=== PATIENT | female | born 1965 | race Caucasian/White ===

== ENCOUNTER 2017-01-08 18:24 | Emergency (ER) | payer OTHER ==
[~2017-01-08] VITALS: Ht 162.6 cm; Wt 91.0 kg
[~2017-01-08 18:24] MED LIST: IMIT25 PO; LEVE500S9 PO; LEVO50TA74 PO; LOSA100T7 PO; TOPI100T42 PO
[2017-01-08 18:37] VITALS: Ht 162.6 cm; Wt 91.0 kg
[2017-01-08 20:00] LABS: URINE BLOOD (Dip) POC Trace-intact (NEGATIVE)
--- NOTE | 2017-01-08 21:33 | RADRPT ---
PROCEDURE: US Pelvis. CLINICAL INDICATION: Right-sided inguinal pain. TECHNIQUE: Multiple sonographic images of the pelvis were obtained utilizing a transabdominal and endovaginal technique. The images were reviewed on a PACS workstation. COMPARISON: No. FINDINGS: The uterus is visualized and measures 9 cm sagittal by 6.6 cm AP by 5.8 cm transverse.. The endometr ial echo complex is normal and measures 1.1- 1.2 cm, respectively in the right and left uterine horn s. There is a bicornuate uterus. The ovaries are not evaluated. There are multiple Nabothian cysts on the cervix. The largest measured up to 1.4 cm in diameter. No free fluid is identified in the p jon. No abnormal adnexal mass is noted. IMPRESSION: 1. Bicornuate uterus. 2. Endometrial thickness measures 1.1-1.2 cm in the right left uterine horns. No endometrial pranay s identified. 3. The ovaries are not evaluated. 4. There are multiple Nabothian cysts on the cervix. RPTAT:AAJJ Physician Yves Date Time Electronically viewed and signed by Physician Yves on 01/08/2017 21:33 MARIO/
--- NOTE | 2017-01-08 22:28 | RADRPT ---
PROCEDURE: Right inguinal ultrasound CLINICAL INDICATION: Right inguinal pain TECHNIQUE: Multiple transverse and longitudinal images of the right inguinal canal were obtained. The images were reviewed on a high-resolution PACS workstation. COMPARISON: None FINDINGS: No sonographic evidence for hernia is seen. No mass is seen. No fluid collection is identified. IMPRESSION: No sonographic evidence for a right inguinal hernia. Clinical concern for a right inguinal hernia p ersist, a CT is recommended. RPTAT: HPNM Physician Hal Date Time Electronically viewed and signed by Physician Hal on 01/08/2017 22:27 /
[2017-01-08] MEDS ORDERED: ACET500C5 PO (22:57)
--- NOTE | 2017-01-08 23:36 | ERD ---
ER Documentation Chief Complaint Date/Time DATE: 01/08/17 TIME: 23:31 Chief Complaint pain/swelling right thigh x 2 weeks, states "boil" HPI Patient is a 51-year-old female with a past medical history of hypertension, hyperthyroidism, migraines who presents to the emergency department with pain and swelling to her right inguinal fold. Patient states that the pain has been getting gradually worse. Patient states pain has been present for 2 weeks now. She denies any pain with urination. Patient denies any excessive vaginal discharge or bleeding. Patient states that she feels a small "ball" in the region. She denies any erythema, warmth or discharge from affected site. Patient denies any fever, chills, nausea, vomiting, upper abdominal pain. Patient denies any falls or trauma. Patient denies any headache, blurry vision, dizziness, loss consciousness. ROS All systems reviewed and are negative except as per history of present illness. Medications Home Meds Active Scripts Acetaminophen* (Tylophen*) 500 Mg Capsule, 1 CAP PO Q6H Y for PAIN AND OR ELEVATED TEMP, #20 CAP Prov:LFAVIA DOUGLAS PA-C 01/08/17 Levetiracetam* (Keppra*) 500 Mg/5 Ml Solution, 750 MG PO BID for 30 Days, #60 BOTTLE Prov:ISABEL KENDRICK Y 06/11/16 Topiramate* (Topamax*) 100 Mg Tablet, 100 MG PO BID for 30 Days, #60 TAB Prov:ISABEL KENDRICK Y 06/11/16 Reported Medications Sumatriptan Succinate* (Imitrex*) 25 Mg Tablet, 25 MG PO DAILY Y for MIGRAINE HEADACHE, TAB May repeat after 2 hours if needed; MAX 200 mg/24 hours 06/03/16 Losartan Potassium* (Losartan Potassium*) 100 Mg Tablet, 100 MG PO DAILY, TAB 06/22/15 Levothyroxine Sodium* (Levothyroxine Sodium*) 50 Mcg Tablet, 50 MCG PO DAILY, TAB 06/22/15 Allergies Allergies: Coded Allergies: No Known Drug Allergy (Verified Allergy, Mild, 01/08/17) PMhx/Soc History of Surgery: No Anesthesia Reaction: No Hx Neurological Disorder: Yes Hx Respiratory Disorders: No Hx Cardiac Disorders: Yes Hx Psychiatric Problems: No Hx Miscellaneous Medical Probl: Yes (htn, migraines) Hx Alcohol Use: No Hx Substance Use: No Hx Tobacco Use: No Smoking Status: Never smoker FmHx Family History: No diabetes Physical Exam Vitals Vital Signs Date Time Temp Pulse Resp B/P Pulse Ox O2 Delivery O2 Flow Rate FiO2 01/08/17 23:45 98.2 77 16 142/68 97 01/08/17 18:37 98.0 94 20 175/88 97 Physical Exam GENERAL: Well-developed, well-nourished female. Appears in no acute distress. HEAD: Normocephalic, atraumatic. EYES: Pupils are equally reactive bilaterally. EOMs grossly intact. No conjunctival erythema. ENT: Moist mucous membranes. No uvula deviation. No kissing tonsils. NECK: Supple. No lymphadenopathy or thyromegaly. No meningismus. LUNG: Clear to auscultation bilaterally. No rhonchi, wheezing, rales or coarse breath sounds. HEART: Regular rate and rhythm. No murmurs, rubs or gallops. ABDOMEN: No scars, ecchymosis or rashes noted. Soft and nondistended. Minimally tender to palpation in the right inguinal area. No hernias palpated. Nonerythematous, No swelling, no warmth, no lymphatic streaking. No signs fo cellulitis or abscess formation. No rebound tenderness, no guarding. (-) McBurneys point tenderness. No CVA tenderness. + Skin tag in right inner groin crease. BACK: No midline tenderness. EXTREMITIES: Equal pulses bilaterally. No peripheral clubbing, cyanosis or edema. No unilateral leg swelling. NEUROLOGIC: Alert and oriented. Moving all four extremities without any difficulty. Normal speech. Steady gait. SKIN: Normal color. Warm and dry. No rashes or lesions. Results 24 hrs Laboratory Tests Test 01/08/17 20:02 Bedside Urine Blood Trace-intact Bedside Urine Glucose (UA) Negative Bedside Urine Ketones (LAB) Negative Bedside Urine Leukocyte Esterase (L Negative Bedside Urine Nitrite (LAB) Negative Bedside Urine Protein (LAB) Negative Bedside Urine pH (LAB) 6.0 Procedures/MDM ED COURSE: The patient was stable throughout ED course. I kept the patient and/or family informed of laboratory and diagnostic imaging results throughout the ED course. DIAGNOSTIC IMAGING: Read by radiologist. DIAGNOSTIC IMAGING REPORT Patient: ANGELITO HUTTON : 1965 Age: 51 Sex: F MR #: [id number] DOS: 01/08/17 2141 Ordering MD: FLAVIA DOUGLAS PA-C Location: [facility] Room/Bed: PROCEDURE: Right inguinal ultrasound CLINICAL INDICATION: Right inguinal pain TECHNIQUE: Multiple transverse and longitudinal images of the right inguinal canal were obtained. The images were reviewed on a high-resolution PACS workstation. COMPARISON: None FINDINGS: No sonographic evidence for hernia is seen. No mass is seen. No fluid collection is identified. IMPRESSION: No sonographic evidence for a right inguinal hernia. Clinical concern for a right inguinal hernia persist, a CT is recommended. RPTAT: HPNM Ananda Lizama Physician Date Time Electronically viewed and signed by Ananda Lizama Physician on 01/08/2017 22 :27 / CC: FLAVIA DOUGLAS PA-C DIAGNOSTIC IMAGING REPORT Patient: ANGELITO HUTTON : 1965 Age: 51 Sex: F MR #: [id number] DOS: 01/08/17 1950 Ordering MD: FLAVIA DOUGLAS PA-C Location: [facility] Room/Bed: PROCEDURE: US Pelvis. CLINICAL INDICATION: Right-sided inguinal pain. TECHNIQUE: Multiple sonographic images of the pelvis were obtained utilizing a transabdominal and endovaginal technique. The images were reviewed on a PACS workstation. COMPARISON: No. FINDINGS: The uterus is visualized and measures 9 cm sagittal by 6.6 cm AP by 5.8 cm transverse.. The endometrial echo complex is normal and measures 1.1- 1.2 cm, respectively in the right and left uterine horns. There is a bicornuate uterus. The ovaries are not evaluated. There are multiple Nabothian cysts on the cervix. The largest measured up to 1.4 cm in diameter. No free fluid is identified in the pelvis. No abnormal adnexal mass is noted. IMPRESSION: 1. Bicornuate uterus. 2. Endometrial thickness measures 1.1-1.2 cm in the right left uterine horns. No endometrial masses identified. 3. The ovaries are not evaluated. 4. There are multiple Nabothian cysts on the cervix. RPTAT:AAJJ Reggie Ramon Physician Date Time Electronically viewed and signed by Reggie Ramon Physician on 01/08/2017 21:33 JM/ CC: FLAVIA DOUGLAS PA-C MEDICAL DECISION MAKING: This is a 51 year old who presents with right sided inguinal pain x 2 weeks. Vital signs were reviewed. Patient was afebrile. Urine dip was negative for acute infection or hematuria. Pelvic ultrasound showed Bicornuate uterus. Endometrial thickness measures 1.1-1.2 cm in the right left uterine horns. No endometrial masses identified. The ovaries are not evaluated. There are multiple Nabothian cysts on the cervix. Given that patient was persistent about "ball" in inguinal area, limited abdominal U/S was ordered. Abdominal U/S showed no sonographic evidence for a right inguinal hernia. Clinical concern for a right inguinal hernia persist, a CT is recommended. Given these findings , the patients presentation is most consistent with inguinal pain of unknown etiology. I have a much lower clinical concern for ectopic , ovarian torsion, PID, fibroids, endometriosis, vulvovaginitis, uterine prolapse, pyelonephritis, UTI, inguinal hernia, abscess, cellulitis. Unable to rule out malignancy, however low suspicion at this time. PRESCRIPTIONS: Tylenol DISCHARGE: At this time, patient is stable for discharge and outpatient management. I have instructed the patient to follow-up with his/her primary care physician/OBGYN in 1-2 days. I have discussed with the patient the possibility of needing to see a OBGYN or neurologist for further workup and diagnostic studies if the pain persists. Pain be neuropathic in origin. I have instructed the patient to promptly return to the ER at any time for any new or worsening symptoms including increased pain, nausea, vomiting, vaginal bleeding, weakness or fever. The patient and/or family expressed understanding of and agreement with this plan. All questions were answered. Home care instructions were provided. Patients blood pressure was elevated (>120/80) but appears stable without evidence of hypertensive emergency, hypertensive urgency or end-organ failure. I had discussion with the patient about the risks of hypertension. I have advised the patient to follow up with his/her primary care physician for outpatient monitoring and treatment for hypertension in 2-3 days. I have instructed the patient to return to the ER for any new or worsening symptoms including chest pain, shortness of breath, headache, blurred vision, confusion, nausea, vomiting or LOC. Departure Diagnosis: Primary Impression: Inguinal pain Laterality: right Qualified Code: R10.31 - Inguinal pain, right Additional Impression: Pelvic pain Condition: Stable Patient Instructions: Pelvic Pain, Unknown Cause Referrals: [facility] YOU HAVE RECEIVED A MEDICAL SCREENING EXAM AND THE RESULTS INDICATE THAT YOU DO NOT HAVE A CONDITION THAT REQUIRES URGENT TREATMENT IN THE EMERGENCY DEPARTMENT. FURTHER EVALUATION AND TREATMENT OF YOUR CONDITION CAN WAIT UNTIL YOU ARE SEEN IN YOUR DOCTORS OFFICE WITHIN THE NEXT 1-2 DAYS. IT IS YOUR RESPONSIBILITY TO MAKE AN APPOINTMENT FOR FOLOW-UP CARE. IF YOU HAVE A PRIMARY DOCTOR --you should call your primary doctor and schedule an appointment IF YOU DO NOT HAVE A PRIMARY DOCTOR YOU CAN CALL OUR PHYSICIAN REFERRAL HOTLINE AT IF YOU CAN NOT AFFORD TO SEE A PHYSICIAN YOU CAN CHOSE FROM THE FOLLOWING [facility] [address] [facility]. [facility] [address] [facility] [address] [facility] [facility] [address] [facility]. [facility] [address] [facility] [facility]. [address] [facility] YOU HAVE RECEIVED A MEDICAL SCREENING EXAM AND THE RESULTS INDICATE THAT YOU DO NOT HAVE A CONDITION THAT REQUIRES URGENT TREATMENT IN THE EMERGENCY DEPARTMENT. FURTHER EVALUATION AND TREATMENT OF YOUR CONDITION CAN WAIT UNTIL YOU ARE SEEN IN YOUR DOCTORS OFFICE WITHIN THE NEXT 1-2 DAYS. IT IS YOUR RESPONSIBILITY TO MAKE AN APPOINTMENT FOR FOLOW-UP CARE. IF YOU HAVE A PRIMARY DOCTOR --you should call your primary doctor and schedule and appointment IF YOU DO NOT HAVE A PRIMARY DOCTOR YOU CAN CALL OUR PHYSICIAN REFERRAL HOTLINE AT . IF YOU CAN NOT AFFORD TO SEE A PHYSICIAN YOU CAN CHOSE FROM THE FOLLOWING [facility] INSTITUTIONS: [facility] [address] [place] [address] [facility] [address] [place] [address] [facility] [address] [place] [address] Additional Instructions: Call your primary care doctor TOMORROW for an appointment during the next 1-2 days.See the doctor sooner or return here if your condition worsens before your appointment time. At this time, the patients presentation is most consistent with pelvic pain of unknown etiology. Patient will need to follow-up with the [facility] for her symptoms. FLAVIA DOUGLAS PA-C Jan 08, 2017 23:35
[2017-01-08 23:45] VITALS: BP 142/68; PULSE 77; RESP 16; TEMP 98.2
== END 2017-01-08 23:46 | disposition home or self-care (01) ==
LOC: FTE 18:24
DX: R10.31 Right lower quadrant pain (principal); R10.2 Pelvic and perineal pain; I10 Essential (primary) hypertension; E03.9 Hypothyroidism, unspecified
CPT/HCPCS: 76705; 76830; 76856; 81003

== ENCOUNTER 2017-10-01 09:01 | Emergency (ER) | payer OTHER ==
[~2017-10-01] VITALS: Wt 93.7 kg
[~2017-10-01 09:01] MED LIST changes: +ACET500C5 PO; -IMIT25 PO; +LEVE500S8 PO; -LEVE500S9 PO; +SUMA25TA34 PO
[2017-10-01] MEDS ORDERED: LORAZEPAM 2 MG INJ IM STA (09:18)
[2017-10-01] MEDS ORDERED: LEVETIRACETAM 1000 MG (PMX) 100 ML IVPB STA (09:18)
[2017-10-01] MEDS ORDERED: LEVE-5 PO (09:37)
--- NOTE | 2017-10-01 10:25 | RADRPT ---
PROCEDURE: CT Brain without contrast. CLINICAL INDICATION: Left sided headache following multiple seizures. TECHNIQUE: A CT of the brain was performed on a multidetector CT scanner utilizing axial sections from the skull base through the vertex without contrast. Images were reviewed on a high-resolution [employer] workstation. Exam CTDI = 45.01 mGy and the DLP = 720.23 mGy-cm. One or the following dose reduction techniques were used: -Automated exposure control. -Adjustment of the mA and/or KV according to patient's size. -Use of iterative reconstruction technique COMPARISON: None available FINDINGS: Mild diffuse cerebral and cerebellar atrophy is present. There is proportionate dilatation of the v entricular system and sulci in a symmetric fashion. There is prominence of the extraaxial spaces sec ondary to atrophy. There is no evidence of intracranial hemorrhage, mass effect or midline shift. N o abnormal intra-axial or extra-axial fluid collections are seen. The density of the brain is carmelo l and the elias/white matter differentiation is well preserved. Mild patchy diffuse deep white matte r microangiopathic ischemic change is seen. The osseous structures and visualized paranasal sinuses are unremarkable. IMPRESSION: 1. No evidence of acute intracranial pathology. 2. Age-related volume loss and small vessel ischemic changes. RPTAT: AACC Physician Anita Date Time Electronically viewed and signed by Physician Anita on 10/01/2017 10:25 /
[2017-10-01 10:43] VITALS: BP 148/90; PULSE 62; RESP 20
[2017-10-01] MEDS ORDERED: KETOROLAC 30 MG INJ IV STA (10:55)
--- NOTE | 2017-10-01 13:22 | ERD ---
ER Documentation Chief Complaint Chief Complaint LEFT SIDED HEADACHE FOLLOWING NUMEROUS SIEZURES THIS WEEK HPI Patient is a 51-year-old female with hypertension and seizures who presents with a seizure. The seizure was witnessed by her at 3 AM. The daughter does not know how long the seizure lasted and the is not here. The seizure stopped on its own. The patient takes Keppra but stopped taking her medication at the end of August because she did not like the way it made her feel. Upon review of old medical records this is the patient's 10th visit to the ER since 2009. ROS All systems reviewed and are negative except as per history of present illness. Medications Home Meds Reported Medications Levetiracetam* (Keppra*) 500 Mg Tablet, 500 MG PO BID, TAB 10/01/17 Sumatriptan Succinate* (Imitrex*) 25 Mg Tablet, 25 MG PO DAILY Y for MIGRAINE HEADACHE, TAB May repeat after 2 hours if needed; MAX 200 mg/24 hours 06/03/16 Losartan Potassium* (Losartan Potassium*) 100 Mg Tablet, 100 MG PO DAILY, TAB 06/22/15 Levothyroxine Sodium* (Levothyroxine Sodium*) 50 Mcg Tablet, 50 MCG PO DAILY, TAB 06/22/15 Discontinued Scripts Acetaminophen* (Tylophen*) 500 Mg Capsule, 1 CAP PO Q6H Y for PAIN AND OR ELEVATED TEMP, #20 CAP Prov:FLAVIA DOUGLAS PA-C 01/08/17 Levetiracetam* (Keppra*) 500 Mg/5 Ml Solution, 750 MG PO BID for 30 Days, #60 BOTTLE Prov:ISABEL KENDRICK Y 06/11/16 Topiramate* (Topamax*) 100 Mg Tablet, 100 MG PO BID for 30 Days, #60 TAB Prov:ISABEL KENDRICK Y 06/11/16 Allergies Allergies: Coded Allergies: No Known Drug Allergy (Verified Allergy, Mild, 10/01/17) PMhx/Soc History of Surgery: No Anesthesia Reaction: No Hx Neurological Disorder: Yes (seizures) Hx Respiratory Disorders: No Hx Cardiac Disorders: Yes Hx Psychiatric Problems: No Hx Miscellaneous Medical Probl: Yes (htn, migraines, HYPOTHYROIDISM ) Hx Alcohol Use: No Hx Substance Use: No Hx Tobacco Use: No Smoking Status: Never smoker FmHx Family History: No diabetes Physical Exam Vitals Vital Signs Date Time Temp Pulse Resp B/P Pulse Ox O2 Delivery O2 Flow Rate FiO2 10/01/17 10:43 62 20 148/90 Nasal Cannula 2.0 10/01/17 09:02 98.0 78 18 147/91 96 Physical Exam Const: No acute distress Head: Atraumatic Eyes: Normal Conjunctiva ENT: Normal External Ears, Nose and Mouth. Neck: Full range of motion..~ No meningismus. Resp: Clear to auscultation bilaterally Cardio: Regular rate and rhythm, no murmurs Abd: Soft, non tender, non distended. Normal bowel sounds Skin: No petechiae or rashes Back: No midline or flank tenderness Ext: No cyanosis, or edema Neur: Awake and alert, the patient did have right-sided facial twitching which started into full body shaking while I was in the room Psych: Normal Mood and Affect Result Diagram: 10/01/1792910/01/17929 Results 24 hrs Laboratory Tests Test 10/01/17 09:30 10/01/17 10:20 White Blood Count 5.910^3/ul Red Blood Count 4.6010^6/ul Hemoglobin 13.4g/dl Hematocrit 40.6% Mean Corpuscular Volume 88.3fl Mean Corpuscular Hemoglobin 29.1pg Mean Corpuscular Hemoglobin Concent 33.0g/dl Red Cell Distribution Width 13.2% Platelet Count 67873^3/UL Mean Platelet Volume 10.2fl Neutrophils % 51.0% Lymphocytes % 37.2% Monocytes % 6.6% Eosinophils % 4.5% Basophils % 0.5% Nucleated Red Blood Cells % 0.0/100WBC Neutrophils # 3.010^3/ul Lymphocytes # 2.210^3/ul Monocytes # 0.410^3/ul Eosinophils # 0.310^3/ul Basophils # 0.010^3/ul Nucleated Red Blood Cells # 0.010^3/ul Prothrombin Time 11.8Sec Prothrombin Time Ratio 0.9 INR International Normalized Ratio 0.87 Activated Partial Thromboplast Time 31.5Sec Sodium Level 143mmol/L Potassium Level 4.2mmol/L Chloride Level 108mmol/L Carbon Dioxide Level 25mmol/L Anion Gap 14 Blood Urea Nitrogen 13mg/dl Creatinine 0.69mg/dl Glucose Level 90mg/dl Calcium Level 9.7mg/dl Bedside Glucose 82mg/dL Current Medications Medications (Trade) Dose Ordered Sig/Kamryn Route PRN Reason Start Time Stop Time Status Last Admin Dose Admin Lorazepam 2 mg 2 mg ONCE STAT IM 10/01/17 09:18 10/01/17 09:19 DC 10/01/17 09:36 Levetiracetam (Keppra 1,000mg/ 100ml (Pmx)) 100 ml @ 400 mls/hr ONCE STAT IVPB 10/01/17 09:18 10/01/17 09:32 DC 10/01/17 09:42 Ketorolac Tromethamine (Toradol) 30 mg ONCE STAT IV 10/01/17 10:55 10/01/17 10:56 DC 10/01/17 11:05 Procedures/MDM CT brain negative per radiology. Patient is a 51-year-old female with hypertension and seizures who presents with a seizure. The patient was given Ativan to help prevent further seizure. Laboratory studies were normal. CT scan of the brain shows no sign of intracranial hemorrhage or mass. I doubt status epilepticus. The patient was instructed not to drive in a DMV form was filled out and sent to the DMV. The patient will need to return for any worsening symptoms. The patient should follow-up with the primary doctor within 24-48 hours for reevaluation. Departure Diagnosis: Primary Impression: Seizure Condition: Fair Patient Instructions: Seizure, Recurrent [Adult] Referrals: Your doctor Additional Instructions: Call your primary care doctor TOMORROW for an appointment during the next 1-2 days.See the doctor sooner or return here if your condition worsens before your appointment time. ESTEFANI EDOUARD MD Oct 01, 2017 13:22
== END 2017-10-01 11:33 | disposition home or self-care (01) ==
LOC: E/R 09:01
DX: R56.9 Unspecified convulsions (principal); I10 Essential (primary) hypertension; E03.9 Hypothyroidism, unspecified; R40.2132 Coma scale, eyes open, to sound, at arrival to emergency department; R40.2212 Coma scale, best verbal response, none, at arrival to emergency department; R40.2342 Coma scale, best motor response, flexion withdrawal, at arrival to emergency department
CPT/HCPCS: 36415; 70450; 80048; 82962; 85025; 85610; 85730; 96372; 96374; 96375; J1885; J1953; J2060; Z7502

== ENCOUNTER 2017-10-06 19:01 | Inpatient (IN) | payer OTHER ==
[~2017-10-06] VITALS: Ht 165.1 cm; Wt 94.9 kg
[~2017-10-06 19:01] MED LIST changes: -ACET500C5 PO; +LEVE-5 PO; -LEVE500S8 PO; -TOPI100T42 PO
[2017-10-06 19:12] VITALS: Ht 165.1 cm; Wt 94.9 kg
[2017-10-06 19:35] VITALS: TEMP 98
[2017-10-06] MEDS ORDERED: LORAZEPAM 2 MG INJ IV STA (19:43)
[2017-10-06] MEDS ORDERED: LEVETIRACETAM 1000 MG (PMX) 100 ML IVPB STA (19:43)
[2017-10-06 19:56] LABS: BASOPHILS % 0.4 % (0.0-2.0); EOSINOPHILS # 0.2 10^3/ul (0.0-0.5); EOSINOPHILS % 2.9 % (0.0-7.0); HEMATOCRIT 43.6 % (37.0-47.0); HEMOGLOBIN 14.4 g/dl (12.0-16.0); LYMPHOCYTES # 3.2 10^3/ul (0.8-2.9); LYMPHOCYTES % 38.6 % (15.0-51.0); MEAN CORPUSCULAR HEMOGLOBIN 29.1 pg (29.0-33.0); MEAN CORPUSCULAR VOLUME 88.1 fl (82.0-101.0); MEAN PLATELET VOLUME 10.1 fl (7.4-10.4); MONOCYTE # 0.5 10^3/ul (0.3-0.9); MONOCYTES % 6.4 % (0.0-11.0); NEUTROPHIL # 4.3 10^3/ul (1.6-7.5); NEUTROPHILS % 51.5 % (39.0-77.0); PLATELET COUNT 294 10^3/UL (140-415); RED BLOOD COUNT 4.95 10^6/ul (4.20-5.40); RED CELL DISTRIBUTION WIDTH 13.2 % (11.5-14.5); WHITE BLOOD COUNT 8.4 10^3/ul (4.8-10.8)
[2017-10-06 20:11] LABS: INR 0.91; PROTIME 12.2 Sec (12.2-14.2)
[2017-10-06 20:12] LABS: PARTIAL THROMBOPLASTIN TIME 31.2 Sec (25.0-35.0)
[2017-10-06 20:15] LABS: ANION GAP 16 (8-16); BLOOD UREA NITROGEN 12 mg/dl (7-20); CALCIUM 9.9 mg/dl (8.4-10.2); CARBON DIOXIDE 27 mmol/L (21-31); CHLORIDE 104 mmol/L (97-110); CREATININE 0.76 mg/dl (0.44-1.00); GLUCOSE 96 mg/dl (70-220); POTASSIUM 4.1 mmol/L (3.5-5.1); SODIUM 143 mmol/L (135-144)
--- NOTE | 2017-10-06 20:19 | RADRPT ---
PROCEDURE: CT Head without contrast. CLINICAL INDICATION: Seizures TECHNIQUE: The study was performed utilizing a GE 64-slice multidetector CT scanner. Direct spiral axial CT images of the brain were obtained from the vertex to the skull base without contrast. Cor onal and sagittal reformat images are provided. The CTDI vol is 44.9 mGy and the DLP is 720.23 mGy- cm. The images were reviewed on a PACS workstation. One or more of the following dose reduction techniques were used: Automated exposure control. Adjustment of the mA and/or kV according to patient size. Use of iterative reconstruction technique. COMPARISON: CT brain from 10/01/2017 FINDINGS: The ventricles and cortical sulci are within normal limits. The elias-white matter differentiation i s maintained. No intra or extra-axial fluid collection or mass effect or shift in the midline struc tures is seen. The visualized paranasal sinuses, mastoid air cells, orbits, and calvarium are unrem arkable. IMPRESSION: No acute intracranial pathology. RPTAT: HPNM Physician Hal Date Time Electronically viewed and signed by Physician Hal on 10/06/2017 20:19 /
[2017-10-06 20:45] LABS: TROPONIN-I < 0.012 ng/ml (0.00-0.12)
[2017-10-06] MEDS ORDERED: ONDANSETRON 4 MG INJ IV PRN (21:00)
[2017-10-06] MEDS ORDERED: ACETAMINOPHEN 325 MG TAB PO PRN (21:00)
--- NOTE | 2017-10-06 21:06 | ERD ---
ER Documentation Chief Complaint Chief Complaint last seizure episode at 2 pm; hx of seizures HPI Patient is a 51-year-old female with hypertension and seizures who presents with multiple seizures. The patient had 6-7 seizures since 3 PM. The patient was shaking all over per the and "passed out". She is not awake or oriented at this time and has not come back to her baseline. She does take her Keppra. Upon review of old medical records this is the patient's th visit to the ER since 2009 and I saw her procedure on October 01 and she was discharged after a normal workup. does not remove the name of her primary doctor. Please note the history and physical exam is limited secondary to the patient' s mental status at this time. ROS All systems reviewed and are negative except as per history of present illness. Medications Home Meds Reported Medications Levetiracetam* (Keppra*) 500 Mg Tablet, 500 MG PO BID, TAB 10/01/17 Sumatriptan Succinate* (Imitrex*) 25 Mg Tablet, 25 MG PO DAILY Y for MIGRAINE HEADACHE, TAB May repeat after 2 hours if needed; MAX 200 mg/24 hours 06/03/16 Losartan Potassium* (Losartan Potassium*) 100 Mg Tablet, 100 MG PO DAILY, TAB 06/22/15 Levothyroxine Sodium* (Levothyroxine Sodium*) 50 Mcg Tablet, 50 MCG PO DAILY, TAB 06/22/15 Discontinued Scripts Acetaminophen* (Tylophen*) 500 Mg Capsule, 1 CAP PO Q6H Y for PAIN AND OR ELEVATED TEMP, #20 CAP Prov:FLAVIA DOUGLAS PA-C 01/08/17 Levetiracetam* (Keppra*) 500 Mg/5 Ml Solution, 750 MG PO BID for 30 Days, #60 BOTTLE Prov:ISABEL KENDRICK Y 06/11/16 Topiramate* (Topamax*) 100 Mg Tablet, 100 MG PO BID for 30 Days, #60 TAB Prov:ISABEL KENDRICK Y 06/11/16 Allergies Allergies: Coded Allergies: No Known Drug Allergy (Verified Allergy, Mild, 10/01/17) PMhx/Soc History of Surgery: No Anesthesia Reaction: No Hx Neurological Disorder: Yes (seizures) Hx Respiratory Disorders: No Hx Cardiac Disorders: Yes Hx Psychiatric Problems: No Hx Miscellaneous Medical Probl: Yes (htn, migraines, HYPOTHYROIDISM ) Hx Alcohol Use: No Hx Substance Use: No Hx Tobacco Use: No Smoking Status: Never smoker FmHx Family History: diabetes Physical Exam Vitals Vital Signs Date Time Temp Pulse Resp B/P Pulse Ox O2 Delivery O2 Flow Rate FiO2 10/06/17 19:35 98.0 79 19 161/81 99 Room Air 10/06/17 19:12 97.9 84 20 169/80 99 Physical Exam Const: Not awake but no active seizure activity Head: Atraumatic Eyes: Normal Conjunctiva ENT: Normal External Ears, Nose and Mouth. Neck: Full range of motion..~ No meningismus. Resp: Clear to auscultation bilaterally Cardio: Regular rate and rhythm, no murmurs Abd: Soft, non tender, non distended. Normal bowel sounds Skin: No petechiae or rashes Back: No midline or flank tenderness Ext: No cyanosis, or edema Neur: Not awake, not back to baseline at this time, no active seizure Result Diagram: 10/06/17193910/06/171939 Results 24 hrs Laboratory Tests Test 10/06/17 19:40 White Blood Count 8.410^3/ul Red Blood Count 4.9510^6/ul Hemoglobin 14.4g/dl Hematocrit 43.6% Mean Corpuscular Volume 88.1fl Mean Corpuscular Hemoglobin 29.1pg Mean Corpuscular Hemoglobin Concent 33.0g/dl Red Cell Distribution Width 13.2% Platelet Count 68747^3/UL Mean Platelet Volume 10.1fl Neutrophils % 51.5% Lymphocytes % 38.6% Monocytes % 6.4% Eosinophils % 2.9% Basophils % 0.4% Nucleated Red Blood Cells % 0.0/100WBC Neutrophils # 4.310^3/ul Lymphocytes # 3.210^3/ul Monocytes # 0.510^3/ul Eosinophils # 0.210^3/ul Basophils # 0.010^3/ul Nucleated Red Blood Cells # 0.010^3/ul Prothrombin Time 12.2Sec Prothrombin Time Ratio 1.0 INR International Normalized Ratio 0.91 Activated Partial Thromboplast Time 31.2Sec Sodium Level 143mmol/L Potassium Level 4.1mmol/L Chloride Level 104mmol/L Carbon Dioxide Level 27mmol/L Anion Gap 16 Blood Urea Nitrogen 12mg/dl Creatinine 0.76mg/dl Glucose Level 96mg/dl Calcium Level 9.9mg/dl Troponin I < 0.012ng/ml Current Medications Medications (Trade) Dose Ordered Sig/Kamryn Route PRN Reason Start Time Stop Time Status Last Admin Dose Admin Lorazepam 1 mg 1 mg ONCE STAT IV 10/06/17 19:43 10/06/17 19:45 DC 10/06/17 19:52 Levetiracetam (Keppra 1,000mg/ 100ml (Pmx)) 100 ml @ 400 mls/hr ONCE STAT IVPB 10/06/17 19:43 10/06/17 19:57 DC 10/06/17 20:01 Ondansetron HCl (Zofran Inj) 4 mg ER BRIDGE PRN IV NAUSEA AND/OR VOMITING 10/06/17 21:00 10/07/17 20:59 Acetaminophen (Tylenol Tab) 650 mg ER BRIDGE PRN PO MILD PAIN/FEVER 10/06/17 21:00 10/07/17 20:59 Procedures/MDM CT brain negative per radiology. Patient is a 51-year-old female presents with multiple seizures. I believe she has acute status epilepticus as she has not come back to baseline at this time. I doubt meningitis, intrarenal hemorrhage, or intracranial mass. I believe the patient will need admission at this time for further treatment and evaluation. She has been given Ativan and Keppra to prevent further seizure. The patient will be admitted to a telemetry bed under the care of Dr. Galloway to an inpatient bed. Critical Care: Time: 35 minutes excluding all billable procedures. Treatments/Evaluations: Close monitoring and treatment of unstable vital signs, cardiorespiratory, and neurologic status, while maintaining tight balance of fluid, respiratory, and cardiac interventions. Departure Diagnosis: Primary Impression: Status epilepticus Additional Impression: Seizure disorder Condition: Serious ESTEFANI EDOUARD MD Oct 06, 2017 21:06
[2017-10-06 21:20] VITALS: PULSE 85
[2017-10-06 23:50] VITALS: BP 119/74; RESP 20
[2017-10-06] MEDS: SOD CHLORIDE 0.45% 1,000 ML IV SCH (23:59)
[2017-10-07] VITALS (12 sets, daily range): BP systolic 117–134; BP diastolic 69–77; PULSE 65–81; RESP 17–18
--- NOTE | 2017-10-07 05:13 | HP ---
Date/Time of Note Date/Time of Note DATE: 10/07/17 TIME: 05:05 Assessment/Plan VTE Prophylaxis VTE Prophylaxis Intervention: SCD's Lines/Catheters IV [facility] Peripheral IV Assessment/Plan Assessment/Plan ASSESSMENT 51-year-old female with a history of seizure disorder, hypertension and hypothyroidism presented after having had multiple seizures, currently in a postictal state. PLAN -Patient is status post a dose of Ativan and Keppra in the ER. She takes 500 mg Keppra twice a day. I will put her on Keppra thousand milligrams IV twice a day while she is in here. She will be provided as needed Ativan or Valium for breakthrough seizure. Head CT as mentioned above was unremarkable. Will place neurology consult. -Hold her home thyroid and BP meds until mental status improves and is appropriate for oral intake -Seizure precaution HPI/ROS Admit Date/Time Admit Date/Time Oct 06, 2017 at 20:37 Hx of Present Illness This is a 51-year-old female with a history of seizure disorder, hypertension, hypothyroidism who presented to the ER after having had multiple seizures. She has had about 6 seizures, which started a few hours prior to arrival to the ER. Reportedly, her whole body was shaking when she was having seizure. Currently she is in the postictal state and did very lethargic. She is not able to provide any history. She was seen in the ER less than a week ago for seizure. Last time she was admitted here was in 2016 for seizure She presented to the ER today blood pressure was 169/80. CBC and BMP as well as a head CT are unremarkable PMH/Family/Social Social History Smoking Status: Never smoker Exam/Review of Systems Vital Signs Vitals Vital Signs Date Time Temp Pulse Resp B/P Pulse Ox O2 Delivery O2 Flow Rate FiO2 10/07/17 04:00 65 10/07/17 04:00 97.5 18 117/72 96 10/06/17 19:35 Room Air Exam Constitutional: other (Lethargic. Not oriented.) Head: atraumatic, normocephalic Eyes: PERRL Respiratory: clear to auscultation Cardiovascular: nl pulses, regular rate and rhythm Gastrointestinal: soft Extremities: normal pulses Neurological: confused, lethargic Labs Result Diagram: 11/8/17 1940 11/8/17 1940 Medications Medications Current Medications Lorazepam 2 mg 2 mg Q10MIN PRN IV Seizure; Start 10/06/17 at 23:00 Sodium Chloride (1/2 NS) 1,000 ml @ 100 mls/hr Q10H IV Last administered on t 23:59; Admin Dose 100 MLS/HR; Start 10/06/17 at 23:00 Influenza Virus Vaccine (Fluzone) 0.5 ml ONCE ONCE IM* ; Start 10/08/17 at 09: 00; Stop 10/08/17 at 09:01 JOEY OCHOA MD Oct 07, 2017 05:13
[2017-10-07] MEDS: LORAZEPAM 2 MG INJ IV PRN (08:00)
[2017-10-07] MEDS: SUMATRIPTAN 6 MG/0.5 ML INJ SC ONE ×2 (08:03→09:47)
[2017-10-07 08:37] LABS: BASOPHILS % 0.6 % (0.0-2.0); EOSINOPHILS # 0.3 10^3/ul (0.0-0.5); EOSINOPHILS % 4.5 % (0.0-7.0); HEMATOCRIT 40.4 % (37.0-47.0); HEMOGLOBIN 13.1 g/dl (12.0-16.0); LYMPHOCYTES # 2.6 10^3/ul (0.8-2.9); LYMPHOCYTES % 40.7 % (15.0-51.0); MEAN CORPUSCULAR HGB CONC 32.4 g/dl (32.0-37.0); MEAN CORPUSCULAR VOLUME 89.6 fl (82.0-101.0); MEAN PLATELET VOLUME 10.1 fl (7.4-10.4); MONOCYTE # 0.6 10^3/ul (0.3-0.9); MONOCYTES % 8.9 % (0.0-11.0); NEUTROPHIL # 2.9 10^3/ul (1.6-7.5); NEUTROPHILS % 45.1 % (39.0-77.0); PLATELET COUNT 264 10^3/UL (140-415); RED BLOOD COUNT 4.51 10^6/ul (4.20-5.40); RED CELL DISTRIBUTION WIDTH 13.3 % (11.5-14.5); WHITE BLOOD COUNT 6.4 10^3/ul (4.8-10.8)
[2017-10-07 08:56] LABS: CALCIUM 9.2 mg/dl (8.4-10.2); CREATININE 0.7 mg/dl (0.44-1.00); MAGNESIUM 1.8 mg/dl (1.7-2.5); PHOSPHORUS 3.7 mg/dl (2.5-4.9); POTASSIUM 3.8 mmol/L (3.5-5.1)
[2017-10-07] MEDS: SOD CHLORIDE 0.45% 1,000 ML IV SCH ×2 (09:00→13:25)
[2017-10-07] MEDS: LEVETIRACETAM 1000 MG (PMX) 100 ML IVPB SCH ×2 (09:46→21:02)
--- NOTE | 2017-10-07 13:44 | PN ---
Date/Time of Note Date/Time of Note DATE: 10/07/17 TIME: 13:41 Assessment/Plan VTE Prophylaxis VTE Prophylaxis Intervention: SCD's Lines/Catheters IV Catheter Type (from Nrsg): Peripheral IV Assessment/Plan Assessment/Plan 1. Seizure disorder, on keppra, may need second agent, follow up with neurology 2. Hypertension, resume losartan at smaller dosage 3. Hypothyroidism, on synthroid Subjective 24 Hr Interval Summary Free Text/Dictation lethargic but oriented Exam/Review of Systems Vital Signs Vitals Vital Signs Date Time Temp Pulse Resp B/P Pulse Ox O2 Delivery O2 Flow Rate FiO2 10/07/17 12:06 73 10/07/17 11:59 98.9 18 122/74 98 10/06/17 19:35 Room Air Intake and Output 10/06/17 10/06/17 10/07/17 15:00 23:00 07:00 Intake Total 700 ml Balance 700 ml Exam Constitutional: alert, obese, oriented, well developed Psych: nl mood/affect, no complaints Head: atraumatic, normocephalic Eyes: EOMI, nl conjunctiva, nl lids ENMT: nl external ears & nose, nl lips & teeth, nl nasal mucosa & septum Neck: non-tender, supple Respiratory: clear to auscultation, normal air movement, No congested cough, No crackles/rales, No diminished breath sounds, No intercostal retraction, No labored breathing, No other, No respirations, No tactile fremitus, No wheezing Cardiovascular: nl pulses, regular rate and rhythm, No S3, No S4, No bruits, No diastolic murmur, No edema, No gallop, No irregular rhythm, No jugular venous distention (JVD), No murmurs/extra sounds, No other, No rub, No systolic murmur Gastrointestinal: nl liver, spleen, non-tender, soft, No ascites, No bowel sounds, No distended, No firm, No hepatomegaly, No mass , No other, No rebound or guarding, No splenomegaly, No surgical scars, No tender Musculoskeletal: nl extremities to inspection Extremities: normal pulses, No calf tenderness, No clubbing, No cyanosis, No edema, No other, No palpable cord, No pitting pedal edema, No tenderness Neurological: [employer]GET COUNSELOR II-XII intact, nl mental status, nl speech, nl strength Skin: nl turgor Results Result Diagram: 10/07/17 0748 10/07/17 0749 Results 24 hrs Laboratory Tests Test 10/06/17 19:40 10/07/17 07:48 10/07/17 07:49 White Blood Count 8.4 # 6.4 # Red Blood Count 4.95 4.51 Hemoglobin 14.4 13.1 Hematocrit 43.6 40.4 Mean Corpuscular Volume 88.1 89.6 Mean Corpuscular Hemoglobin 29.1 29.0 Mean Corpuscular Hemoglobin Concent 33.0 32.4 Red Cell Distribution Width 13.2 13.3 Platelet Count 294 264 Mean Platelet Volume 10.1 10.1 Neutrophils % 51.5 45.1 Lymphocytes % 38.6 40.7 Monocytes % 6.4 8.9 Eosinophils % 2.9 4.5 Basophils % 0.4 0.6 Nucleated Red Blood Cells % 0.0 0.0 Neutrophils # 4.3 2.9 Lymphocytes # 3.2 H 2.6 Monocytes # 0.5 0.6 Eosinophils # 0.2 0.3 Basophils # 0.0 0.0 Nucleated Red Blood Cells # 0.0 0.0 Prothrombin Time 12.2 Prothrombin Time Ratio 1.0 INR International Normalized Ratio 0.91 Activated Partial Thromboplast Time 31.2 Sodium Level 143 140 Potassium Level 4.1 3.8 Chloride Level 104 107 Carbon Dioxide Level 27 26 Anion Gap 16 11 Blood Urea Nitrogen 12 13 Creatinine 0.76 0.70 Glucose Level 96 90 Calcium Level 9.9 9.2 Troponin I < 0.012 Phosphorus Level 3.7 Magnesium Level 1.8 Medications Medications Current Medications Lorazepam 2 mg 2 mg Q10MIN PRN IV Seizure Last administered on 10/07/17 08:00 ; Admin Dose 2 MG; Start 10/06/17 at 23:00 Sodium Chloride (1/2 NS) 1,000 ml @ 100 mls/hr Q10H IV Last administered on 13:25; Admin Dose 100 MLS/HR; Start 10/06/17 at 23:00 Influenza Virus Vaccine 0.5 ml 0.5 ml ONCE ONCE IM* ; Start 10/08/17 at 09:00; Stop 10/08/17 at 09:01 Levetiracetam (Keppra 1,000mg/ 100ml (Pmx)) 100 ml @ 400 mls/hr Q12 IVPB Last administered on 10/07/17t 09:46; Admin Dose 400 MLS/HR; Start 10/07/17 at 09:00 Acetaminophen (Tylenol Tab) 650 mg Q6H PRN PO PAIN AND OR ELEVATED TEMP; Start 10/07/17 at 07:00 VENU MONTERROSO MD Oct 07, 2017 13:44
[2017-10-07] MEDS ORDERED: LOSARTAN 50 MG TAB PO SCH (14:00)
[2017-10-07] MEDS: LOSARTAN 50 MG TAB PO SCH (14:34)
[2017-10-08] VITALS (13 sets, daily range): BP systolic 109–139; BP diastolic 74–89; PULSE 56–88; RESP 16–20
[2017-10-08] MEDS: SOD CHLORIDE 0.45% 1,000 ML IV SCH ×4 (00:05→23:20)
[2017-10-08] MEDS: LEVOTHYROXINE 50 MCG TAB PO SCH (06:47)
[2017-10-08] MEDS: LEVETIRACETAM 1000 MG (PMX) 100 ML IVPB SCH ×2 (08:04→20:19)
[2017-10-08] MEDS: LOSARTAN 50 MG TAB PO SCH (08:11)
[2017-10-08] MEDS ORDERED: INFLUENZA VIRUS VACCINE 0.5 ML (DISPENSING) IM* ONE (09:00)
[2017-10-08] MEDS ORDERED: LEVE750T70 PO (13:39)
[2017-10-08] MEDS ORDERED: LOSA50TA2 PO (13:42)
--- NOTE | 2017-10-08 13:44 | DS ---
Date/Time of Note Date/Time of Note DATE: 10/08/17 TIME: 13:40 Discharge Summary Admission/Discharge Info Admit Date/Time Oct 06, 2017 at 20:37 Discharge Date/Time Discharge Diagnosis 1. Seizure disorder, keppra increased, follow up with neurology 2. Hypertension, resume losartan at smaller dosage 3. Hypothyroidism, on synthroid Patient Condition: Stable Hospital Course This is a 51-year-old female with a history of seizure disorder, hypertension, hypothyroidism who presented to the ER after having had multiple seizures. She has had about 6 seizures, which started a few hours prior to arrival to the ER. Reportedly, her whole body was shaking when she was having seizure. Currently she is in the postictal state and did very lethargic. She is not able to provide any history. She was seen in the ER less than a week ago for seizure. Last time she was admitted here was in 2015 for seizure Patient got ativan then increased keppra to 1000mg iv bid after admission. No seizure spell. I will discharge her on keppra 750 mg po bid and have her follow up with neurology outpatient. Her blood pressure has been well controlled with losartan 50 mg po daily. Home Meds Active Scripts Levetiracetam* (Keppra*) 750 Mg Tablet, 750 MG PO BID for 30 Days, TAB Prov:VENU MONTERROSO MD 10/08/17 Reported Medications Losartan Potassium* (Losartan Potassium*) 100 Mg Tablet, 100 MG PO DAILY, TAB 06/22/15 Levothyroxine Sodium* (Levothyroxine Sodium*) 50 Mcg Tablet, 50 MCG PO DAILY, TAB 06/22/15 Discontinued Reported Medications Levetiracetam* (Keppra*) 500 Mg Tablet, 500 MG PO BID, TAB 10/01/17 Sumatriptan Succinate* (Imitrex*) 25 Mg Tablet, 25 MG PO DAILY Y for MIGRAINE HEADACHE, TAB May repeat after 2 hours if needed; MAX 200 mg/24 hours 06/03/16 Discontinued Scripts Acetaminophen* (Tylophen*) 500 Mg Capsule, 1 CAP PO Q6H Y for PAIN AND OR ELEVATED TEMP, #20 CAP Prov:FLAVIA DOUGLAS PA-C 01/08/17 Levetiracetam* (Keppra*) 500 Mg/5 Ml Solution, 750 MG PO BID for 30 Days, #60 BOTTLE Prov:ISABEL KENDRICK 06/11/16 Topiramate* (Topamax*) 100 Mg Tablet, 100 MG PO BID for 30 Days, #60 TAB Prov:ISABEL KENDRICK 06/11/16 Follow-up Plan PCP and neurology in one week Primary Care Provider [facility] VENU MONTERROSO MD Oct 08, 2017 13:44
[2017-10-09] VITALS (8 sets, daily range): BP systolic 129–134; BP diastolic 65–74; PULSE 66–90; RESP 18
[2017-10-09] MEDS: LEVOTHYROXINE 50 MCG TAB PO SCH (06:00)
[2017-10-09] MEDS: LEVETIRACETAM 1000 MG (PMX) 100 ML IVPB SCH (09:19)
[2017-10-09] MEDS: LOSARTAN 50 MG TAB PO SCH (09:20)
[2017-10-09] MEDS: ACETAMINOPHEN 325 MG TAB PO PRN ×2 (09:25→16:45)
[2017-10-09] MEDS: SOD CHLORIDE 0.45% 1,000 ML IV SCH (12:22)
--- NOTE | 2017-10-09 14:19 | PN ---
Date/Time of Note Date/Time of Note DATE: 10/09/17 TIME: 14:18 Assessment/Plan VTE Prophylaxis VTE Prophylaxis Intervention: SCD's Lines/Catheters IV [facility] Saline Lock Urinary Cath still in place: No Assessment/Plan Chief Complaint/Hosp Course 1. Seizure disorder. Continue anticonvulsants. Continue seizure precautions. Await neurology evaluation. 2. Essential hypertension. Continue antihypertensives. Blood pressure well controlled. 3. Hypothyroidism. Continue Synthroid. 4. Fluids, electrolytes, and nutrition. Regular diet. 5. DVT prophylaxis. Bilateral sequential compression devices. 6. Plan. Await neurology evaluation. Case discussed with Dr. Taylor. Problems: Subjective 24 Hr Interval Summary Free Text/Dictation Complains of minimal headache. Exam/Review of Systems Vital Signs Vitals Vital Signs Date Time Temp Pulse Resp B/P Pulse Ox O2 Delivery O2 Flow Rate FiO2 10/09/17 12:33 67 10/09/17 04:10 97.5 18 129/65 96 10/08/17 00:00 Room Air Intake and Output 10/08/17 10/08/17 10/09/17 15:00 23:00 07:00 Intake Total 100 ml 650 ml 2150 ml Balance 100 ml 650 ml 2150 ml Exam General: Obese 51 year-old female lying in bed in no apparent distress. HEENT: Normocephalic, atraumatic. Eyes: Anicteric sclerae, conjunctivae clear. ENT: Nasal septum midline, oral mucosa moist. Neck supple, no JVD noticed. Respiratory: Bilaterally clear breath sounds. No use of accessory muscles of respiration. No adventitious breath sounds. Cardiovascular: S1, S2 heard. No murmurs or gallops. Abdomen: Soft, nontender, and nondistended. Bowel sounds positive in all 4 quadrants. Genitourinary: Deferred. Extremities: No cyanosis, no clubbing, no edema. Peripheral pulses palpable. Neurologic: Cranial nerves II through XII grossly intact. The patient is awake, alert, and oriented. Skin: Normal skin turgor. No skin rashes. Results Result Diagram: 10/07/17 0748 10/07/17 0749 Medications Medications Current Medications Lorazepam 2 mg 2 mg Q10MIN PRN IV Seizure Last administered on 10/07/17t 08:00 ; Admin Dose 2 MG; Start 11/8/17 at 23:00 Sodium Chloride 1,000 ml @ 100 mls/hr Q10H IV Last administered on 10/09/17 12:22; Admin Dose 100 MLS/HR; Start 10/06/17 at 23:00 Levetiracetam (Keppra 1,000mg/ 100ml (Pmx)) 100 ml @ 400 mls/hr Q12 IVPB Last administered on 10/09/17 09:19; Admin Dose 400 MLS/HR; Start 10/07/17 at 09:00 Acetaminophen (Tylenol Tab) 650 mg Q6H PRN PO PAIN AND OR ELEVATED TEMP Last administered on 10/09/17 09:25; Admin Dose 650 MG; Start 10/07/17 at 07:00 Levothyroxine Sodium (Synthroid) 50 mcg DAILY@06 PO Last administered on 06:00; Admin Dose 50 MCG; Start 10/08/17 at 06:00 Losartan Potassium (Cozaar) 50 mg DAILY PO Last administered on 10/09/17 09: 20; Admin Dose 50 MG; Start 10/07/17 at 14:00 ALLIE GELLER NP Oct 09, 2017 14:18 ALILE GELLER NP Oct 09, 2017 14:18
[2017-10-09] MEDS: LORAZEPAM 2 MG INJ IV PRN ×3 (15:52→16:45)
[2017-10-09] MEDS ORDERED: PHENYTOIN 1,500 MG in SOD CHLORIDE 0.9% 150 ML IV ONE (17:30)
--- NOTE | 2017-10-09 18:25 | CONS ---
DATE OF ADMISSION: 10/06/2017 DATE OF CONSULTATION: 10/09/2017 NEUROLOGICAL CONSULTATION HISTORY OF PRESENT ILLNESS: Thank you for your kind referral for evaluation of intractable seizures. The patient is a 51-year-old lady with past medical history of seizure disorder, hypertension as well as migraine headache without aura. The patient states, and actually her I talked to on the phone, provided details of the history. The patient has 4 years of seizures. The last time she was hospitalized here about a year and a half ago in May last year and according to the last major breakthrough seizures until a few weeks ago , she started getting a lot of seizures, almost every few days. Currently, she is getting several seizures per day. She was admitted 3 days ago. She has been taking Keppra 750 mg twice daily and at some point she was given Topamax. That was in May last year, 100 twice daily but for whatever reason she was not taking it and she does not have recollection of taking Topamax. She had MRI of the brain a year and a half ago. At that time a few white matter lesions. It was done with and without contrast. Also, she had EEG last year by Dr. Parmar as sharp waves in the left temporal area consistent with postictal status. CAT scan of the brain was done during this hospitalization. No acute abnormality. The patient's seizure usually starts with headache. At times she feels nauseous and according to the usually her blood pressure goes up. She has generalized episodes with postictal confusion. Two days ago, her Keppra was increased to 1000 mg twice daily. Other medications currently are L-thyroxine (she has history of hypothyroidism) . She states that she takes sumatriptan, aspirin or Motrin for migraines which may occur about 2 times per day. No aura preceding the migraine. SOCIAL HISTORY: No alcohol, tobacco, drug use. FAMILY HISTORY: Noncontributory. REVIEW OF SYSTEMS: All pertinent positives included in the above history of present illness. Patient has a seizure recently, and she is slightly sleepy. PHYSICAL EXAMINATION VITAL SIGNS: On examination now 97.5 temperature, 90 pulse, 18 respiration, 129 /65 blood pressure. GENERAL: Not in acute distress, lying in bed. HEENT: Normocephalic, atraumatic head. NECK: No carotid bruits. No thyromegaly. LUNGS: Clear to auscultation bilaterally. CARDIAC: Normal cardiac rhythm and sounds. ABDOMEN: Soft, nontender. EXTREMITIES: No cyanosis, clubbing or edema. NEUROLOGIC: She is awake, alert, and oriented x3 with fluent speech. Cranial nerve examination shows intact visual marsh bilaterally. Pupils round, reactive from 3 to 2 mm bilaterally. Extraocular movements intact without nystagmus. Symmetrical face. Preserved facial strength and sensation. Tongue is in midline. Palate elevates symmetrically. Motor strength examination preserved in all extremities. Normal bulk, tone, and strength. Sensory examination intact to light touch and pain. Deep tendon reflexes 2+ throughout. Downgoing toes bilaterally. Coordination preserved on finger-to- finger testing. No dysmetria or tremor. Gait was not assessed. IMPRESSION: Intractable seizure disorder, seizures are controlled for about a year or year and a half and she started having multiple breakthrough seizures again. I will repeat MRI of the brain with contrast as well as EEG. I will increase Keppra 1500 mg twice daily and load patient with Dilantin. We will check Dilantin level tomorrow. We will continue Dilantin 300 at night. Also, I will start the patient on small dose of Topamax 25 mg twice daily with the idea of gradually increasing it, as it could help from migraines. It should be increased by 25 mg every 1 or 2 weeks. Thank you very much for this interesting consultation. Dictated By: JOSE NASH/SERGEY Conf#: [id number] DID#: [id number] MTDD
[2017-10-09] MEDS ORDERED: PHENYTOIN 100 MG CAP PO SCH (21:00)
[2017-10-09] MEDS: TOPIRAMATE 25 MG TAB PO SCH (21:38)
[2017-10-10] VITALS (12 sets, daily range): BP systolic 119–158; BP diastolic 66–89; PULSE 73–88; RESP 18–19
[2017-10-10] MEDS: SOD CHLORIDE 0.45% 1,000 ML IV SCH ×3 (00:50→17:00)
[2017-10-10] MEDS: LEVETIRACETAM 1500 MG (PMX) 100 ML IVPB SCH ×3 (00:52→20:48)
[2017-10-10] MEDS: LEVOTHYROXINE 50 MCG TAB PO SCH (06:00)
[2017-10-10] MEDS: LOSARTAN 50 MG TAB PO SCH (08:39)
--- NOTE | 2017-10-10 09:12 | PN ---
Date/Time of Note Date/Time of Note DATE: 10/10/17 TIME: 09:12 Assessment/Plan VTE Prophylaxis VTE Prophylaxis Intervention: SCD's Lines/Catheters IV [facility]ter Type (from [facility]): Peripheral IV Urinary Cath still in place: No Assessment/Plan Chief Complaint/Hosp Course Assessment and plan 1. Seizure disorder. Continue anticonvulsants. Dose adjusted per neurologist. Monitor for efficacy. MRI is pending. Follow-up on EEG. 2. Essential hypertension. Stable at present. Continue antihypertensives and adjust as needed. 3. Hypothyroidism. Continue on Synthroid Disposition plan: Follow-up on imaging of the brain. Follow-up on EEG. Monitor for clinical improvement seizure. Discussed plan of care Dr. Taylor Problems: Subjective 24 Hr Interval Summary Free Text/Dictation no s/s of distress. still reports having some headaches Exam/Review of Systems Vital Signs Vitals Vital Signs Date Time Temp Pulse Resp B/P Pulse Ox O2 Delivery O2 Flow Rate FiO2 10/10/17 08:15 98.2 76 18 134/79 96 10/08/17 00:00 Room Air Intake and Output 10/09/17 10/09/17 10/10/17 14:59 22:59 06:59 Intake Total 720 ml 2300 ml Balance 720 ml 2300 ml Exam Constitutional: alert, obese, oriented Psych: nl mood/affect Head: atraumatic, normocephalic Eyes: nl conjunctiva Neck: non-tender, supple Respiratory: clear to auscultation Cardiovascular: regular rate and rhythm Gastrointestinal: non-tender, soft Musculoskeletal: nl extremities to inspection, nl gait and stance Neurological: [employer] SITE MONITOR II-XII intact, nl mental status, nl speech Skin: nl turgor Results Result Diagram: 10/07/17 0748 10/07/17 0749 Results 24 hrs Laboratory Tests Test 10/10/17 05:53 Phenytoin (Dilantin) Level 11.9 Medications Medications Current Medications Lorazepam 2 mg 2 mg Q10MIN PRN IV Seizure Last administered on 10/09/17 16:45 ; Admin Dose 2 MG; Start 10/06/17 at 23:00 Sodium Chloride (1/2 NS) 1,000 ml @ 100 mls/hr Q10H IV Last administered on 06:00; Admin Dose 100 MLS/HR; Start 10/06/17 at 23:00 Acetaminophen (Tylenol Tab) 650 mg Q6H PRN PO PAIN AND OR ELEVATED TEMP Last administered on 10/09/17 16:45; Admin Dose 650 MG; Start 10/07/17 at 07:00 Levothyroxine Sodium (Synthroid) 50 mcg DAILY@06 PO Last administered on 06:00; Admin Dose 50 MCG; Start 10/08/17 at 06:00 Losartan Potassium 50 mg 50 mg DAILY PO Last administered on 10/10/17 08:39; Admin Dose 50 MG; Start 10/07/17 at 14:00 Levetiracetam (Keppra 1,500mg/ 100ml (Pmx)) 100 ml @ 400 mls/hr Q12 IVPB Last administered on 10/10/17 08:39; Admin Dose 400 MLS/HR; Start 10/09/17 at 21: 00 Phenytoin (Dilantin) 300 mg HS PO Last administered on 10/09/17 21:38; Admin Dose 300 MG; Start 10/09/17 at 21:00 Topiramate (Topamax) 25 mg QHS PO Last administered on 10/09/17 21:38; Admin Dose 25 MG; Start 10/09/17 at 21:00 TITO HOGUE Oct 10, 2017 09:12
[2017-10-10] MEDS ORDERED: ACET/BUTAL/CAFF TAB PO PRN (12:30)
--- NOTE | 2017-10-10 14:57 | CONS ---
Date/Time of Note Date/Time of Note DATE: 10/10/17 TIME: 14:53 Consult Date/Type/Reason Admit Date/Time Oct 06, 2017 at 20:37 Initial Consult Date Type of Consultation: neuro Subjective 2 seizures this night, also 2 seizures in MRI, now postictal Objective Vital Signs Date Time Temp Pulse Resp B/P Pulse Ox O2 Delivery O2 Flow Rate FiO2 10/10/17 12: 98.3 89 18 158/85 94 10/08/17 00:00 Room Air Intake and Output 10/09/17 10/09/17 10/10/17 15:00 23:00 07:00 Intake Total 720 ml 2300 ml Balance 720 ml 2300 ml Results/Medications Result Diagram: 10/07/17 0748 10/07/17 0749 Results 24 hrs Laboratory Tests Test 10/10/17 05:53 Phenytoin (Dilantin) Level 11.9 Medications Current Medications Lorazepam 2 mg 2 mg Q10MIN PRN IV Seizure Last administered on 10/09/17 16:45 ; Admin Dose 2 MG; Start 10/06/17 at 23:00 Sodium Chloride (1/2 NS) 1,000 ml @ 100 mls/hr Q10H IV Last administered on 06:00; Admin Dose 100 MLS/HR; Start 10/06/17 at 23:00 Acetaminophen (Tylenol Tab) 650 mg Q6H PRN PO PAIN AND OR ELEVATED TEMP Last administered on 10/09/17 16:45; Admin Dose 650 MG; Start 10/07/17 at 07:00 Levothyroxine Sodium (Synthroid) 50 mcg DAILY@06 PO Last administered on 06:00; Admin Dose 50 MCG; Start 10/08/17 at 06:00 Losartan Potassium 50 mg 50 mg DAILY PO Last administered on 10/10/17 08:39; Admin Dose 50 MG; Start 10/07/17 at 14:00 Levetiracetam (Keppra 1,500mg/ 100ml (Pmx)) 100 ml @ 400 mls/hr Q12 IVPB Last administered on 10/10/17 08:39; Admin Dose 400 MLS/HR; Start 10/09/17 at 21: 00 Phenytoin (Dilantin) 300 mg HS PO Last administered on 10/09/17 21:38; Admin Dose 300 MG; Start 10/09/17 at 21:00 Topiramate (Topamax) 25 mg QHS PO Last administered on 10/09/17 21:38; Admin Dose 25 MG; Start 10/09/17 at 21:00 Acetaminophen/ Butalbital/ Caffeine (Fioricet) 2 tab Q4H PRN PO PAIN; Start at 12:30 Assessment/Plan Chief Complaint/Hosp Course NEUROLOGIC: She is lethargic, postictal, not verbal, mumbles to pain. Cranial nerve examination shows no response to visual threat bilaterally. Pupils round , reactive from 3 to 2 mm bilaterally. Extraocular movements intact without nystagmus on OCMCorneals present. Motor strength examination flaccid, trace movements IMPRESSION: Intractable seizure disorder, seizures are controlled for about a year or year and a half and she started having multiple breakthrough seizures again. MRI of the brain with contrast done just now, no report yet. EEG normal. Cont 1500 mg twice daily, increase dilantin 200 bid. Level 12. Problems: JOSE DONOVAN MD Oct 10, 2017 14:57
[2017-10-10] MEDS: LORAZEPAM 2 MG INJ IV PRN (15:06)
--- NOTE | 2017-10-10 15:43 | RADRPT ---
PROCEDURE: MRI Brain without and with contrast. CLINICAL INDICATION: Seizure. TECHNIQUE: An MRI of the brain was performed utilizing the following sequences: Sagittal T1-weigh john, axial T2-weighted, axial and coronal FLAIR, axial T1, coronal high 3-D FSPGR, coronal GRE axial diffusion-weighted with ADC mapping. Following the uneventful administration of 10 cc Magnevist, po stcontrast axial and coronal T1-weighted images were obtained. Images were viewed on a PACS workstat ion. COMPARISON: Brain CT 10/06/2017. Brain MRI 06/04/2016. FINDINGS: Multiple images are degraded by motion more pronounced in postcontrast images. No diffusion weighted abnormalities are seen to suggest the presence of acute ischemia or recent inf arct. There is no intracranial hemorrhage, mass effect, or midline shift. No extra-axial fluid col lection is seen. The ventricles and sulci are age-appropriate. Bilateral hippocampi are symmetric i n size and signal intensity. Several small foci of T2 and FLAIR hyperintensity are seen in the deep and subcortical white matter, nonspecific in appearance though perhaps reflective of complicated migraines, early microvascular i schemic disease, sequela from prior traumatic or inflammatory insults. The gradient echo images reve al no areas of susceptibility artifact to suggest blood degradation products or abnormal calcificati on. No abnormal intraparenchymal, meningeal or ependymal enhancement is seen. No abnormal intracranial vascular flow voids are noted. The pituitary and sella reveal no abnormali ty. The suprasellar cistern is clear. The visualized paranasal sinuses are clear. The mastoid air cells are clear. IMPRESSION: Suboptimal motion degraded study. 1. No acute intracranial hemorrhage, infarction or mass. No intracranial enhancing abnormality. 2. Several small foci of white matter signal abnormality, nonspecific in appearance though perhaps reflective of complicated migraines, early microvascular ischemic disease, sequela from prior trauma tic or inflammatory insults. RPTAT: QQ .Michelle Mendoza MD, MD Date Time Electronically viewed and signed by .Michelle Mendoza MD, MD on 10/10/2017 15:43 .N/
[2017-10-10] MEDS ORDERED: PHENYTOIN 500 MG in SOD CHLORIDE 0.9% 100 ML IV ONE (16:00)
--- NOTE | 2017-10-10 17:36 | SP ---
DATE OF PROCEDURE: 10/09/2017 DATE OF EE10/09/2017. INDICATION: A 51-year-old lady with intractable seizures, currently on Keppra. DESCRIPTION OF PROCEDURE: Routine EEG was recorded digitally. [id number] and akqwn-sz-[id number] nelly ages were recorded and reviewed. All impedances were measured and recorded. Cap electrodes were pl aced in accordance with International 10-20 system of electrode placement. FINDINGS: Symmetrically distributed background activity of low to medium amplitude ranging in frequ ency between 9 to 11 cycles per second was seen throughout the recording. No definite epileptiform transients were seen. No signs of ongoing electrographic seizures or lateralized slowing. Photic stimulation produces no definite driving. Hyperventilation elicits no epileptiform activity. IMPRESSION: Normal study. Please correlate clinically. Dictated By: JOSE BalderramaV/SERGEY Conf#: [id number] DID#: [id number] CC: JOEY OCHOA MD;*EndCC*
[2017-10-10] MEDS: TOPIRAMATE 25 MG TAB PO SCH (20:49)
[2017-10-10] MEDS: PHENYTOIN 100 MG CAP PO SCH (20:49)
[2017-10-11] VITALS (12 sets, daily range): BP systolic 110–138; BP diastolic 52–103; PULSE 70–92; RESP 16–19
[2017-10-11] MEDS: SOD CHLORIDE 0.45% 1,000 ML IV SCH ×3 (05:27→23:48)
[2017-10-11] MEDS: LEVOTHYROXINE 50 MCG TAB PO SCH (05:27)
[2017-10-11 07:33] LABS: BASOPHILS % 0.5 % (0.0-2.0); EOSINOPHILS # 0.3 10^3/ul (0.0-0.5); EOSINOPHILS % 4.4 % (0.0-7.0); HEMATOCRIT 40.8 % (37.0-47.0); HEMOGLOBIN 13.3 g/dl (12.0-16.0); LYMPHOCYTES # 2.3 10^3/ul (0.8-2.9); MEAN CORPUSCULAR HEMOGLOBIN 28.9 pg (29.0-33.0); MEAN CORPUSCULAR HGB CONC 32.6 g/dl (32.0-37.0); MEAN CORPUSCULAR VOLUME 88.7 fl (82.0-101.0); MONOCYTE # 0.6 10^3/ul (0.3-0.9); MONOCYTES % 7.7 % (0.0-11.0); NEUTROPHIL # 4.2 10^3/ul (1.6-7.5); NEUTROPHILS % 56.3 % (39.0-77.0); PLATELET COUNT 252 10^3/UL (140-415); RED CELL DISTRIBUTION WIDTH 13.2 % (11.5-14.5); WHITE BLOOD COUNT 7.4 10^3/ul (4.8-10.8)
[2017-10-11 07:55] LABS: CALCIUM 9.1 mg/dl (8.4-10.2); CREATININE 0.76 mg/dl (0.44-1.00); POTASSIUM 4.2 mmol/L (3.5-5.1)
[2017-10-11] MEDS: LOSARTAN 50 MG TAB PO SCH (09:59)
[2017-10-11] MEDS: LEVETIRACETAM 1500 MG (PMX) 100 ML IVPB SCH ×2 (10:00→20:30)
[2017-10-11] MEDS: PHENYTOIN 100 MG CAP PO SCH ×2 (10:00→20:30)
[2017-10-11] MEDS: LORAZEPAM 2 MG INJ IV PRN (14:28)
--- NOTE | 2017-10-11 14:28 | PN ---
Date/Time of Note Date/Time of Note DATE: 10/11/17 TIME: 14:23 Assessment/Plan VTE Prophylaxis VTE Prophylaxis Intervention: SCD's Lines/Catheters IV [facility]ter Type [facility]from [facility]): Peripheral IV Urinary Cath still in place: No Assessment/Plan Chief Complaint/Hosp Course This is a 51-year-old female with a history of seizure disorder, hypertension, hypothyroidism who presented to the ER after having had multiple seizures. She has had about 6 seizures, which started a few hours prior to arrival to the ER. Reportedly, her whole body was shaking when she was having seizure. Currently she is in the postictal state and did very lethargic. She is not able to provide any history. She was seen in the ER less than a week ago for seizure. Last time she was admitted here was in 2016 for seizure Patient got ativan then increased keppra to 1000mg iv bid after admission. No seizure spell. I will discharge her on keppra 750 mg po bid and have her follow up with neurology outpatient. Her blood pressure has been well controlled with losartan 50 mg po daily. Problems: Assessment/Plan 1. Seizure disorder, keppra increased, dilantin added on 10/10/2017, follow up with neurology 2. Hypertension, controlled 3. Hypothyroidism, on synthroid Subjective 24 Hr Interval Summary Free Text/Dictation seizure spells over the weekend. Keppra increased and dilantin started on 2016 Exam/Review of Systems Vital Signs Vitals Vital Signs Date Time Temp Pulse Resp B/P Pulse Ox O2 Delivery O2 Flow Rate FiO2 10/11/17 12:18 92 10/11/17 11:34 98.1 19 121/89 99 10/08/17 00:00 Room Air Intake and Output 10/10/17 10/10/17 10/11/17 15:00 23:00 07:00 Intake Total 100 ml 820 ml 1450 ml Balance 100 ml 820 ml 1450 ml Exam Constitutional: alert, obese, oriented, well developed Head: atraumatic, normocephalic Eyes: EOMI, PERRL, nl conjunctiva, nl lids, nl sclera ENMT: nl external ears & nose, nl lips & teeth, nl nasal mucosa & septum Neck: non-tender, supple Respiratory: clear to auscultation, normal air movement, No congested cough, No crackles/rales, No diminished breath sounds, No intercostal retraction, No labored breathing, No other, No respirations, No tactile fremitus, No wheezing Cardiovascular: nl pulses, regular rate and rhythm, No S3, No S4, No bruits, No diastolic murmur, No edema, No gallop, No irregular rhythm, No jugular venous distention (JVD), No murmurs/extra sounds, No other, No rub, No systolic murmur Gastrointestinal: nl liver, spleen, non-tender, soft, No ascites, No bowel sounds, No distended, No firm, No hepatomegaly, No mass , No other, No rebound or guarding, No splenomegaly, No surgical scars, No tender Musculoskeletal: nl extremities to inspection, No joint tenderness, No muscle tone, No muscle weakness, No nl gait and stance, No other, No range of motion, No spine non-tender, No swelling Extremities: normal pulses, No calf tenderness, No clubbing, No cyanosis, No edema, No other, No palpable cord, No pitting pedal edema, No tenderness Neurological: SERVICE VEHICLE OPERATOR II-XII intact, nl mental status, nl speech, nl strength Skin: nl turgor Results Result Diagram: 10/11/17 0708 10/11/17 0708 Results 24 hrs Laboratory Tests Test 10/11/17 07:08 White Blood Count 7.4 Red Blood Count 4.60 Hemoglobin 13.3 Hematocrit 40.8 Mean Corpuscular Volume 88.7 Mean Corpuscular Hemoglobin 28.9 L Mean Corpuscular Hemoglobin Concent 32.6 Red Cell Distribution Width 13.2 Platelet Count 252 Mean Platelet Volume 10.0 Neutrophils % 56.3 Lymphocytes % 31.0 Monocytes % 7.7 Eosinophils % 4.4 Basophils % 0.5 Nucleated Red Blood Cells % 0.0 Neutrophils # 4.2 Lymphocytes # 2.3 Monocytes # 0.6 Eosinophils # 0.3 Basophils # 0.0 Nucleated Red Blood Cells # 0.0 Sodium Level 143 Potassium Level 4.2 Chloride Level 106 Carbon Dioxide Level 27 Anion Gap 14 Blood Urea Nitrogen 10 Creatinine 0.76 Glucose Level 87 Calcium Level 9.1 Phenytoin (Dilantin) Level 19.2 Medications Medications Current Medications Lorazepam 2 mg 2 mg Q10MIN PRN IV Seizure Last administered on 10/10/17t 15:06 ; Admin Dose 2 MG; Start 10/06/17 at 23:00 Sodium Chloride (1/2 NS) 1,000 ml @ 100 mls/hr Q10H IV Last administered on 13:18; Admin Dose 100 MLS/HR; Start 10/06/17 at 23:00 Acetaminophen (Tylenol Tab) 650 mg Q6H PRN PO PAIN AND OR ELEVATED TEMP Last administered on 10/09/17 16:45; Admin Dose 650 MG; Start 10/07/17 at 07:00 Levothyroxine Sodium (Synthroid) 50 mcg DAILY@06 PO Last administered on 05:27; Admin Dose 50 MCG; Start 10/08/17 at 06:00 Losartan Potassium 50 mg 50 mg DAILY PO Last administered on 10/11/17 09:59; Admin Dose 50 MG; Start 10/07/17 at 14:00 Levetiracetam (Keppra 1,500mg/ 100ml (Pmx)) 100 ml @ 400 mls/hr Q12 IVPB Last administered on 10/11/17 10:00; Admin Dose 400 MLS/HR; Start 10/09/17 at 21: 00 Topiramate (Topamax) 25 mg QHS PO Last administered on 10/10/17 20:49; Admin Dose 25 MG; Start 10/09/17 at 21:00 Acetaminophen/ Butalbital/ Caffeine (Fioricet) 2 tab Q4H PRN PO PAIN; Start at 12:30 Phenytoin (Dilantin) 200 mg BID PO Last administered on 10/11/17 10:00; Admin Dose 200 MG; Start 10/10/17 at 21:00 VENU MONTERROSO MD Oct 11, 2017 14:28
[2017-10-11] MEDS: TOPIRAMATE 25 MG TAB PO SCH (20:30)
--- NOTE | 2017-10-11 23:44 | CONS ---
Date/Time of Note Date/Time of Note DATE: 10/11/17 TIME: 23:36 Consult Date/Type/Reason Admit Date/Time Oct 06, 2017 at 20:37 Type of Consultation: neuro Subjective multiple seizures yesterday, still one today, despite high dose keppra and high therapeutic dilantin level. Pt had normal EERGand MRI On questioning pt states that stress could provoke her seizures, at times it started with facial twitching, followed by generalized tremulousness, which she could at times remember?! rising the questions of possibility of non electric psychogenic seizures. Pt claims to be very depressed and constantly anxious, has stressors at home. Objective Vital Signs Date Time Temp Pulse Resp B/P Pulse Ox O2 Delivery O2 Flow Rate FiO2 10/11/17 20:00 86 10/11/17 19:41 98.2 16 110/68 95 10/08/17 00:00 Room Air Intake and Output 10/10/17 10/10/17 10/11/17 14:59 22:59 06:59 Intake Total 100 ml 820 ml 1450 ml Balance 100 ml 820 ml 1450 ml Results/Medications Result Diagram: 10/11/17 0708 10/11/17 0708 Results 24 hrs Laboratory Tests Test 10/11/17 07:08 White Blood Count 7.4 Red Blood Count 4.60 Hemoglobin 13.3 Hematocrit 40.8 Mean Corpuscular Volume 88.7 Mean Corpuscular Hemoglobin 28.9 L Mean Corpuscular Hemoglobin Concent 32.6 Red Cell Distribution Width 13.2 Platelet Count 252 Mean Platelet Volume 10.0 Neutrophils % 56.3 Lymphocytes % 31.0 Monocytes % 7.7 Eosinophils % 4.4 Basophils % 0.5 Nucleated Red Blood Cells % 0.0 Neutrophils # 4.2 Lymphocytes # 2.3 Monocytes # 0.6 Eosinophils # 0.3 Basophils # 0.0 Nucleated Red Blood Cells # 0.0 Sodium Level 143 Potassium Level 4.2 Chloride Level 106 Carbon Dioxide Level 27 Anion Gap 14 Blood Urea Nitrogen 10 Creatinine 0.76 Glucose Level 87 Calcium Level 9.1 Phenytoin (Dilantin) Level 19.2 Medications Current Medications Lorazepam 2 mg 2 mg Q10MIN PRN IV Seizure Last administered on 10/11/17t 14:28 ; Admin Dose 2 MG; Start 10/06/17 at 23:00 Sodium Chloride (1/2 NS) 1,000 ml @ 100 mls/hr Q10H IV Last administered on 13:18; Admin Dose 100 MLS/HR; Start 10/06/17 at 23:00 Acetaminophen (Tylenol Tab) 650 mg Q6H PRN PO PAIN AND OR ELEVATED TEMP Last administered on 10/09/17 16:45; Admin Dose 650 MG; Start 10/07/17 at 07:00 Levothyroxine Sodium (Synthroid) 50 mcg DAILY@06 PO Last administered on 05:27; Admin Dose 50 MCG; Start 10/08/17 at 06:00 Losartan Potassium 50 mg 50 mg DAILY PO Last administered on 10/11/17 09:59; Admin Dose 50 MG; Start 10/07/17 at 14:00 Levetiracetam (Keppra 1,500mg/ 100ml (Pmx)) 100 ml @ 400 mls/hr Q12 IVPB Last administered on 10/11/17 20:30; Admin Dose 400 MLS/HR; Start 10/09/17 at 21: 00 Topiramate (Topamax) 25 mg QHS PO Last administered on 10/11/17 20:30; Admin Dose 25 MG; Start 10/09/17 at 21:00 Acetaminophen/ Butalbital/ Caffeine (Fioricet) 2 tab Q4H PRN PO PAIN; Start at 12:30 Phenytoin (Dilantin) 200 mg BID PO Last administered on 10/11/17 20:30; Admin Dose 200 MG; Start 10/10/17 at 21:00 Assessment/Plan Chief Complaint/Hosp Course NEUROLOGIC: She is awake, alert, and oriented x3 with fluent speech. Cranial nerve examination shows intact visual marsh bilaterally. Pupils round, reactive from 3 to 2 mm bilaterally. Extraocular movements intact without nystagmus. Symmetrical face. Preserved facial strength and sensation. Tongue is in midline. Palate elevates symmetrically. Motor strength examination preserved in all extremities. Normal bulk, tone, and strength. Sensory examination intact to light touch and pain. Deep tendon reflexes 2+ throughout. Downgoing toes bilaterally. Coordination preserved on finger-to- finger testing. No dysmetria or tremor. Gait was not assessed. IMPRESSION: Intractable seizure disorder, seizures are controlled for about a year or year and a half and she started having multiple breakthrough seizures again, under stress, depressed, anxious. Possible psychogenic seizures as well, at times one could have both electric and psychogenic types of seizures. Continue current keppra, dilantin, topamax, add clonazepam 0.25 bid Problems: JOSE DONOVAN MD Oct 11, 2017 23:44
[2017-10-12] VITALS (12 sets, daily range): BP systolic 108–127; BP diastolic 66–80; PULSE 60–95; RESP 16–19
[2017-10-12] MEDS: LEVOTHYROXINE 50 MCG TAB PO SCH (06:43)
[2017-10-12] MEDS: LEVETIRACETAM 750 MG TAB PO SCH ×2 (10:05→21:19)
[2017-10-12] MEDS: PHENYTOIN 100 MG CAP PO SCH ×2 (10:05→21:19)
[2017-10-12] MEDS: LOSARTAN 50 MG TAB PO SCH (10:07)
[2017-10-12] MEDS: clonAZEPAM 0.5 MG TAB PO SCH ×2 (10:09→21:19)
[2017-10-12 10:48] LABS: CALCIUM 8.9 mg/dl (8.4-10.2); CREATININE 0.75 mg/dl (0.44-1.00); POTASSIUM 4.1 mmol/L (3.5-5.1)
--- NOTE | 2017-10-12 14:20 | PN ---
Date/Time of Note Date/Time of Note DATE: 10/12/17 TIME: 14:18 Assessment/Plan VTE Prophylaxis VTE Prophylaxis Intervention: SCD's Lines/Catheters [facility]from [facility] Peripheral IV Urinary Cath still in place: No Assessment/Plan Chief Complaint/Hosp Course This is a 51-year-old female with a history of seizure disorder, hypertension, hypothyroidism who presented to the ER after having had multiple seizures. She has had about 6 seizures, which started a few hours prior to arrival to the ER. Reportedly, her whole body was shaking when she was having seizure. Currently she is in the postictal state and did very lethargic. She is not able to provide any history. She was seen in the ER less than a week ago for seizure. Last time she was admitted here was in 2016 for seizure Patient got ativan then increased keppra to 1000mg iv bid after admission. No seizure spell. I will discharge her on keppra 750 mg po bid and have her follow up with neurology outpatient. Her blood pressure has been well controlled with losartan 50 mg po daily. Problems: Assessment/Plan 1. Seizure disorder, keppra increased, also on dilantin, topamax and clonazepam. follow up with neurology 2. Hypertension, controlled 3. Hypothyroidism, on synthroid Subjective 24 Hr Interval Summary Free Text/Dictation no seizure spell since last night Exam/Review of Systems Vital Signs Vitals Vital Signs Date Time Temp Pulse Resp B/P Pulse Ox O2 Delivery O2 Flow Rate FiO2 10/12/17 12:00 95 10/12/17 11:50 99.0 18 120/79 93 Intake and Output 10/11/17 10/11/17 10/12/17 15:00 23:00 07:00 Intake Total 700 ml 650 ml Balance 700 ml 650 ml Exam Constitutional: alert, oriented, well developed Psych: nl mood/affect, no complaints Head: atraumatic, normocephalic Eyes: EOMI, nl conjunctiva, nl lids ENMT: nl external ears & nose, nl lips & teeth, nl nasal mucosa & septum Neck: non-tender, supple Respiratory: clear to auscultation, normal air movement, No congested cough, No crackles/rales, No diminished breath sounds, No intercostal retraction, No labored breathing, No other, No respirations, No tactile fremitus, No wheezing Cardiovascular: nl pulses, regular rate and rhythm, No S3, No S4, No bruits, No diastolic murmur, No edema, No gallop, No irregular rhythm, No jugular venous distention (JVD), No murmurs/extra sounds, No other, No rub, No systolic murmur Gastrointestinal: nl liver, spleen, non-tender, soft, No ascites, No bowel sounds, No distended, No firm, No hepatomegaly, No mass , No other, No rebound or guarding, No splenomegaly, No surgical scars, No tender Musculoskeletal: nl extremities to inspection Extremities: normal pulses, No calf tenderness, No clubbing, No cyanosis, No edema, No other, No palpable cord, No pitting pedal edema, No tenderness Neurological: TRUSTEE OF ESTATE II-XII intact, nl mental status, nl speech, nl strength Skin: nl turgor Lymph: nl lymph nodes Results Result Diagram: 10/11/17 0708 10/12/17 0752 Results 24 hrs Laboratory Tests Test 10/12/17 07:52 Sodium Level 142 Potassium Level 4.1 Chloride Level 108 Carbon Dioxide Level 26 Anion Gap 12 Blood Urea Nitrogen 11 Creatinine 0.75 Glucose Level 85 Calcium Level 8.9 Medications Medications Current Medications Lorazepam 2 mg 2 mg Q10MIN PRN IV Seizure Last administered on 10/11/17 14:28 ; Admin Dose 2 MG; Start 10/06/17 at 23:00 Sodium Chloride (1/2 NS) 1,000 ml @ 100 mls/hr Q10H IV Last administered on 23:48; Admin Dose 100 MLS/HR; Start 10/06/17 at 23:00 Acetaminophen (Tylenol Tab) 650 mg Q6H PRN PO PAIN AND OR ELEVATED TEMP Last administered on 10/09/17 16:45; Admin Dose 650 MG; Start 10/07/17 at 07:00 Levothyroxine Sodium (Synthroid) 50 mcg DAILY@06 PO Last administered on 06:43; Admin Dose 50 MCG; Start 10/08/17 at 06:00 Losartan Potassium (Cozaar) 50 mg DAILY PO Last administered on 10/12/17 10: 07; Admin Dose 50 MG; Start 10/07/17 at 14:00 Topiramate (Topamax) 25 mg QHS PO Last administered on 10/11/17 20:30; Admin Dose 25 MG; Start 10/09/17 at 21:00 Acetaminophen/ Butalbital/ Caffeine (Fioricet) 2 tab Q4H PRN PO PAIN; Start at 12:30 Phenytoin (Dilantin) 200 mg BID PO Last administered on 10/12/17 10:05; Admin Dose 200 MG; Start 10/10/17 at 21:00 Levetiracetam (Keppra) 1,500 mg BID PO Last administered on 10/12/17 10:05; Admin Dose 1,500 MG; Start 10/12/17 at 09:00 Clonazepam (Klonopin) 0.25 mg BID PO Last administered on 10/12/17 10:09; Admin Dose 0.25 MG; Start 10/12/17 at 09:00 VENU MONTERROSO MD Oct 12, 2017 14:20
[2017-10-12] MEDS: TOPIRAMATE 25 MG TAB PO SCH (21:19)
--- NOTE | 2017-10-12 23:17 | CONS ---
Date/Time of Note Date/Time of Note DATE: 10/12/17 TIME: 23:15 Consult Date/Type/Reason Admit Date/Time Oct 06, 2017 at 20:37 Type of Consultation: neuro Subjective no seizures today, feels less anxious on clonazepam Objective Vital Signs Date Time Temp Pulse Resp B/P Pulse Ox O2 Delivery O2 Flow Rate FiO2 10/12/17 20:02 98.0 68 19 108/75 96 Intake and Output 10/11/17 10/11/17 10/12/17 14:59 22:59 06:59 Intake Total 700 ml 650 ml Balance 700 ml 650 ml Results/Medications Result Diagram: 10/11/17 0708 10/12/17 0752 Results 24 hrs Laboratory Tests Test 10/12/17 07:52 Sodium Level 142 Potassium Level 4.1 Chloride Level 108 Carbon Dioxide Level 26 Anion Gap 12 Blood Urea Nitrogen 11 Creatinine 0.75 Glucose Level 85 Calcium Level 8.9 Medications Current Medications Lorazepam (Ativan) 2 mg Q10MIN PRN IV Seizure Last administered on 10/11/17 14:28; Admin Dose 2 MG; Start 10/06/17 at 23:00 Acetaminophen (Tylenol Tab) 650 mg Q6H PRN PO PAIN AND OR ELEVATED TEMP Last administered on 10/09/17 16:45; Admin Dose 650 MG; Start 10/07/17 at 07:00 Levothyroxine Sodium (Synthroid) 50 mcg DAILY@06 PO Last administered on 06:43; Admin Dose 50 MCG; Start 10/08/17 at 06:00 Losartan Potassium (Cozaar) 50 mg DAILY PO Last administered on 10/12/17 10: 07; Admin Dose 50 MG; Start 10/07/17 at 14:00 Topiramate (Topamax) 25 mg QHS PO Last administered on 10/12/17 21:19; Admin Dose 25 MG; Start 10/09/17 at 21:00 Acetaminophen/ Butalbital/ Caffeine (Fioricet) 2 tab Q4H PRN PO PAIN; Start at 12:30 Phenytoin (Dilantin) 200 mg BID PO Last administered on 10/12/17 21:19; Admin Dose 200 MG; Start 10/10/17 at 21:00 Levetiracetam (Keppra) 1,500 mg BID PO Last administered on 10/12/17 21:19; Admin Dose 1,500 MG; Start 10/12/17 at 09:00 Clonazepam (Klonopin) 0.25 mg BID PO Last administered on 10/12/17 21:19; Admin Dose 0.25 MG; Start 10/12/17 at 09:00 Assessment/Plan Chief Complaint/Hosp Course NEUROLOGIC: She is awake, alert, and oriented x3 with fluent speech. Cranial nerve examination shows intact visual marsh bilaterally. Pupils round, reactive from 3 to 2 mm bilaterally. Extraocular movements intact without nystagmus. Symmetrical face. Preserved facial strength and sensation. Tongue is in midline. Palate elevates symmetrically. Motor strength examination preserved in all extremities. Normal bulk, tone, and strength. Sensory examination intact to light touch and pain. Deep tendon reflexes 2+ throughout. Downgoing toes bilaterally. Coordination preserved on finger-to- finger testing. No dysmetria or tremor. Gait was not assessed. IMPRESSION: Intractable seizure disorder, seizures are controlled for about a year or year and a half and she started having multiple breakthrough seizures again, under stress, depressed, anxious. Possible psychogenic seizures as well, at times one could have both electric and psychogenic types of seizures. Continue current keppra, dilantin, topamax, add clonazepam 0.25 bid If continues not to have seizures, consider dc. PT Problems: JOSE DONOVAN MD Oct 12, 2017 23:17
[2017-10-13] VITALS (9 sets, daily range): BP systolic 114–127; BP diastolic 67–76; PULSE 75–93; RESP 16–18
[2017-10-13] MEDS: LEVOTHYROXINE 50 MCG TAB PO SCH (06:03)
[2017-10-13 08:23] LABS: CREATININE 0.78 mg/dl (0.44-1.00); POTASSIUM 4.6 mmol/L (3.5-5.1)
[2017-10-13] MEDS: PHENYTOIN 100 MG CAP PO SCH (10:17)
[2017-10-13] MEDS: LEVETIRACETAM 750 MG TAB PO SCH (10:18)
[2017-10-13] MEDS: LOSARTAN 50 MG TAB PO SCH (10:18)
[2017-10-13] MEDS: clonAZEPAM 0.5 MG TAB PO SCH (10:18)
[2017-10-13] MEDS ORDERED: PHEN100C PO (14:43)
[2017-10-13] MEDS ORDERED: LEVE750T70 PO (14:43)
[2017-10-13] MEDS ORDERED: TOPI25TA51 PO (14:43)
[2017-10-13] MEDS ORDERED: CLON0.5T4 PO (14:43)
--- NOTE | 2017-10-13 14:49 | DS ---
Date/Time of Note Date/Time of Note DATE: 10/13/17 TIME: 14:44 Discharge Summary Admission/Discharge Info Admit Date/Time Oct 06, 2017 at 20:37 Discharge Date/Time Discharge Diagnosis 1. Seizure disorder, improved, follow up with neurology 2. Hypertension, controlled 3. Hypothyroidism, on synthroid Patient Condition: Stable Hospital Course This is a 51-year-old female with a history of seizure disorder, hypertension, hypothyroidism who presented to the ER after having had multiple seizures. She has had about 6 seizures, which started a few hours prior to arrival to the ER. Reportedly, her whole body was shaking when she was having seizure. Currently she is in the postictal state and did very lethargic. She is not able to provide any history. She was seen in the ER less than a week ago for seizure. Last time she was admitted here was in 2015 for seizure Patient got ativan then increased keppra to 1000mg iv bid after admission. but she still had seizure spells. Keppra is increased to 1500 mg po bid, topamax, dilantin and clonazepam are added. Patient has had no seizure activity since yesterday. Patient will follow up with Dr. Petit in one week. Her blood pressure has been well controlled with losartan 50 mg po daily. Home Meds Active Scripts Topiramate* (Topamax*) 25 Mg Tablet, 25 MG PO QHS for 30 Days, TAB Prov:VENU MONTERROSO MD 10/13/17 Phenytoin* Sodium Extended (Dilantin*) 100 Mg Capsule, 200 MG PO BID for 30 Days , CAP Prov:VENU MONTERROSO MD 10/13/17 Levetiracetam* (Keppra*) 750 Mg Tablet, 1500 MG PO BID for 30 Days, TAB Prov:VENU MONTERROSO MD 10/13/17 Clonazepam* (Clonazepam*) 0.5 Mg Tablet, 0.25 MG PO BID for 30 Days, TAB Prov:VENU MONTERROSO MD 10/13/17 Losartan Potassium* (Cozaar*) 50 Mg Tablet, 50 MG PO DAILY for 30 Days, TAB Prov:VENU MONTERROSO MD 10/08/17 Reported Medications Levothyroxine Sodium* (Levothyroxine Sodium*) 50 Mcg Tablet, 50 MCG PO DAILY, TAB 06/22/15 Discontinued Reported Medications Levetiracetam* (Keppra*) 500 Mg Tablet, 500 MG PO BID, TAB 10/01/17 Sumatriptan Succinate* (Imitrex*) 25 Mg Tablet, 25 MG PO DAILY Y for MIGRAINE HEADACHE, TAB May repeat after 2 hours if needed; MAX 200 mg/24 hours 06/03/16 Follow-up Plan PCP and neurology Dr. Petit in one week Primary Care Provider [facility] Pending Labs Laboratory Tests Test 10/13/17 06:38 Sodium Level 142mmol/L (135-144) Potassium Level 4.6mmol/L (3.5-5.1) Chloride Level 106mmol/L (97-110) Carbon Dioxide Level 26mmol/L (21-31) Anion Gap 15 (8-16) Blood Urea Nitrogen 16mg/dl (7-20) Creatinine 0.78mg/dl (0.44-1.00) Glucose Level 91mg/dl (70-220) Calcium Level 9.0mg/dl (8.4-10.2) VENU MONTERROSO MD Oct 13, 2017 14:49
== END 2017-10-13 16:32 | disposition home or self-care (01) | DRG 101 ==
LOC: E/R 19:01 → MS4 20:37
PROVIDERS: ADMIT Internal Medicine; ATTEND Internal Medicine
PROC: 4A00X4Z Measurement of Central Nervous Electrical Activity, External Approach (ICD-10-PCS; principal; 2017-10-09)
DX: G40.919 Epilepsy, unspecified, intractable, without status epilepticus (principal); I10 Essential (primary) hypertension; E03.9 Hypothyroidism, unspecified
CPT/HCPCS: 36415; 70450; 70553; 80048; 80185; 83735; 84100; 84484; 85025; 85610; 85730; 90686; 92610; 95819; 96374; 96375; 97162; J1165; J1953; J2060; J3030

== ENCOUNTER 2017-10-19 15:02 | Outpatient (CLI) | payer OTHER ==
[~2017-10-19] VITALS: Ht 162.6 cm; Wt 94.5 kg
[~2017-10-19 15:02] MED LIST changes: +CLON0.5T4 PO; -LEVE-5 PO; +LEVE750T70 PO; -LOSA100T7 PO; +LOSA50TA2 PO; +PHEN100C PO; -SUMA25TA34 PO; +TOPI25TA51 PO
[2017-10-19 15:03] VITALS: BP 137/81; PULSE 86; RESP 18; Ht 162.6 cm; Wt 94.5 kg
--- NOTE | 2017-10-19 15:49 | PN ---
Date/Time of Note Date/Time of Note DATE: 10/19/17 TIME: 15:46 Outpatient Progress Note Chief Complaint Seizure disorder/hypertension/hypothyroidism HPI Seizure disorder/patient was recently hospitalized with a multiple seizure, patient feeling fine, but for last couple of days patient has occasional aura, no seizure, no side effect of medication, Hypertension/no headache or dizziness, no local focal weakness, Hypothyroidism/no puffiness of eyes, no constipation, on medication, no side effect, Review of Systems Const: No Fever, no chills, no Wt. loss, no Fatigue, normal appetite, no diaphoresis. Eyes: No pain, no discharge, no redness, no visual change, no foreign body. ENT: No pain, no bleeding, no congestion, no sore throat, no dysphagia, no discharge or rhinitis. Lymph: No adenopathy, no tender nodes, no lymphedema. Resp: No SOB, no cough, no sputum, no wheezing, no chest pain. CV: No chest pain, no palpitaions, no SAEED, no PND, no edema. GI: Normal appetite, no pain, no nausea, no vomiting, no diarrhea, no blood, no constipation. : No frequency, no urgency, no dysuria, no hematuria, no flank pain, no discharge, no bleeding. Musc: no back pain, no neck pain, no knee pain, no restricted ROM. Skin: No rash, no skin lesions, no erythema, no laceration, no bruising, no pruritus. Neuro: No CONTRERAS, no dizziness, no syncope, no seizure, no focal-weakness. Patient feels occasional aura, but no actual seizure, Endo: No polyuria, no polydypsia, no dry-skin, no temp-intolerance. Psych: No hallucinations, no depression, no anxiety, no suicidal ideation. Ext: No edema, no pain, no ulcer, no weakness. Physical Exam Vital Signs Date Time Temp Pulse Resp B/P Pulse Ox O2 Delivery O2 Flow Rate FiO2 10/19/17 15:03 97.6 86 18 137/81 97 Room Air General Appearance: A 51 year-old female who appears well-developed, well- nourished, in no acute distress. Slightly obese, HEENT: Head normocephalic, atraumatic. Pupils equal, round, reactive to light and accommodate. Sclerae are no jaundice. Nasal turbinates pink without erythema or nasal discharge. Mucous membranes pink and moist without lesions. Oropharynx clear without any exudate or discharge. NECK: Supple. Trachea midline, No thyromegaly, No cervical lymphadenopathy, No mass, No carotid bruits, No JVD, Carotid pulses 2+ bilaterally. PULMONARY: Clear to auscultaion bilaterally, No retractions, Chest expansion symmetric bilaterally, no rales, no ronchi, no dulness on percussion. CARDIAC: Normal SI and S2, Regular rate and rythm, no murmur, gallop, or rub. GASTROINTESTINAL: Abdomen is soft, non-tender, Non Rigid, No distention, Positive bowel sounds x4 quadrants, Liver normal. SKIN: Warm, dry, no rash, no bruise, no echmosis. EXTREMITIES: Bilateral lower extremities normal, no edema, no phlabitus, pulse palpable, no contracture. MUSCULOSKELETAL: Spine Normal, Non-tender, Normal range of motion, No swelling, no deformity, no clubbing, or cyanosis, the patient has no edema to bilateral lower extremities, dorsalis pedis pulses palpable bilaterally. NEUROLOGIC: The patient is awake, alert, oriented, responding to yes/no questions appropriately, moving all extremities, cranial nerve intact, normal strenght, normal power, normal coordination, normal gait. Allergies Coded Allergies: No Known Drug Allergy (Unverified Allergy, Mild, 10/06/17) PMH Seizure disorder/hypertension/hypothyroidism Social Hx No smoking no drinking, Family Hx Noncontributory Assessment/Plan Impression Seizure disorder/hypertension/hypothyroidism Plan Patient education done about seizure, Patient encouraged to follow with the primary care physician, Patient has oral, will get Dilantin and Keppra level, Patient high risk for repeated admission, discussed with the patient and the family, if any need will see her early, Patient also advised that the patient has aura may take extra Ativan, and monitor closely, patient has enough supply, Medications Home Meds Active Scripts Topiramate* (Topamax*) 25 Mg Tablet, 25 MG PO QHS for 30 Days, TAB Prov:VENU MONTERROSO MD 10/13/17 Phenytoin* Sodium Extended (Dilantin*) 100 Mg Capsule, 200 MG PO BID for 30 Days , CAP Prov:VENU MONTERROSO MD 10/13/17 Levetiracetam* (Keppra*) 750 Mg Tablet, 1500 MG PO BID for 30 Days, TAB Prov:VENU MONTERROSO MD 10/13/17 Clonazepam* (Clonazepam*) 0.5 Mg Tablet, 0.25 MG PO BID for 30 Days, TAB Prov:VENU MONTERROSO MD 10/13/17 Losartan Potassium* (Cozaar*) 50 Mg Tablet, 50 MG PO DAILY for 30 Days, TAB Prov:VENU MONTERROSO MD 10/08/17 Reported Medications Levothyroxine Sodium* (Levothyroxine Sodium*) 50 Mcg Tablet, 50 MCG PO DAILY, TAB 06/22/15 ROSA SIMMS MD Oct 19, 2017 15:49
== END 2017-10-19 16:23 | disposition home or self-care (01) ==
LOC: DCC 15:02
PROVIDERS: ATTEND Internal Medicine
DX: G40.909 Epilepsy, unspecified, not intractable, without status epilepticus (principal); I10 Essential (primary) hypertension; E03.9 Hypothyroidism, unspecified
CPT/HCPCS: G0463

== ENCOUNTER 2017-10-25 14:22 | Outpatient (CLI) | payer OTHER ==
[~2017-10-25] VITALS: Ht 162.6 cm; Wt 95.0 kg
[2017-10-25 14:29] VITALS: BP 124/78; PULSE 78; RESP 18; Ht 162.6 cm; Wt 95.0 kg
--- NOTE | 2017-10-25 14:50 | PN ---
Date/Time of Note Date/Time of Note DATE: 10/25/17 TIME: 14:42 Outpatient Progress Note Chief Complaint Seizure disorder/hypertension/hypothyroidism HPI Seizure disorder/patient was recently admitted with a seizure disorder, no seizure after discharge, patient had Dilantin and Keppra level, awaiting results , Hypertension/no headache, patient has occasional dizziness, patient had nausea or vomiting, few days ago, at present no nausea or vomiting, no impaired vision , patient has slight dizziness after vomiting, once and patient almost fell down Hypothyroidism/no puffiness of eyes, no constipation,, Review of Systems Const: No Fever, no chills, no Wt. loss, no Fatigue, normal appetite, no diaphoresis. Eyes: No pain, no discharge, no redness, no visual change, no foreign body. ENT: No pain, no bleeding, no congestion, no sore throat, no dysphagia, no discharge or rhinitis. Lymph: No adenopathy, no tender nodes, no lymphedema. Resp: No SOB, no cough, no sputum, no wheezing, no chest pain. CV: No chest pain, no palpitaions, no SAEED, no PND, no edema. GI: Normal appetite, no pain, no nausea, no vomiting, no diarrhea, no blood, no constipation. : No frequency, no urgency, no dysuria, no hematuria, no flank pain, no discharge, no bleeding. Musc: Generalized bone/joint pain, no back pain, no neck pain, no knee pain, no restricted ROM. Skin: No rash, no skin lesions, no erythema, no laceration, no bruising, no pruritus. Neuro: No CONTRERAS, occasional dizziness, no syncope, no seizure, no focal-weakness. Endo: No polyuria, no polydypsia, no dry-skin, no temp-intolerance. Psych: No hallucinations, no depression, no anxiety, no suicidal ideation. Ext: No edema, no pain, no ulcer, no weakness at present, but patient had seizure at that time patient for left-sided weakness,. Physical Exam Vital Signs Date Time Temp Pulse Resp B/P Pulse Ox O2 Delivery O2 Flow Rate FiO2 10/25/17 14:29 97.6 78 18 124/78 98 Room Air General Appearance: A 51 year-old [female who appears well-developed, well- nourished, in no acute distress. HEENT: Head normocephalic, atraumatic. Pupils equal, round, reactive to light and accommodate. Sclerae are no jaundice. Nasal turbinates pink without erythema or nasal discharge. Mucous membranes pink and moist without lesions. Oropharynx clear without any exudate or discharge. NECK: Supple. Trachea midline, No thyromegaly, No cervical lymphadenopathy, No mass, No carotid bruits, No JVD, Carotid pulses 2+ bilaterally. PULMONARY: Clear to auscultaion bilaterally, No retractions, Chest expansion symmetric bilaterally, no rales, no ronchi, no dulness on percussion. CARDIAC: Normal SI and S2, Regular rate and rythm, no murmur, gallop, or rub. GASTROINTESTINAL: Abdomen is soft, non-tender, Non Rigid, No distention, Positive bowel sounds x4 quadrants, Liver normal. SKIN: Warm, dry, no rash, no bruise, no echmosis. EXTREMITIES: Bilateral lower extremities no edema, no phlabitus, pulse palpable , no contracture. MUSCULOSKELETAL: Spine Normal, Non-tender, Normal range of motion, No swelling, no deformity, no clubbing, or cyanosis, the patient has no edema to bilateral lower extremities, NEUROLOGIC: The patient is awake, alert, oriented, responding to yes/no questions appropriately, moving all extremities, cranial nerve intact, normal strenght, normal power, normal coordination, minimally unsteady gait and patient uses walker,. Allergies Coded Allergies: No Known Drug Allergy (Unverified Allergy, Mild, 10/06/17) PMH No change Social Hx No change Family Hx No change Assessment/Plan Impression Seizure disorder/hypertension/hypothyroidism/dizziness and fall Plan Patient had one-time vomiting and dizziness and patient fell down, no apparent injury, Fall precaution, and discussed with the patient with a fall and help to prevent it, patient education done, Patient has appointment with the neurologist, Patient's Keppra level noted, Dilantin level 21.7 minimally high, patient also on Topamax, As patient has multiple seizure and patient on 3 medication, and patient has slight elevated Dilantin level, will monitor, and will repeat the level again, if need to reduce the dose will reduce the dose, and I would leave that up to primary care physician, patient is seeing neurologist tomorrow, I will give a copy of Dilantin level and Keppra level to the patient, and if neurologist wants to decrease the dose will let him do it at present, Patient to follow with the primary care physician, and patient also explained that patient will need to check Dilantin level again in few weeks, and it may go high and then patient may have other symptoms like nausea vomiting unsteady gait and multiple falls, so patient encouraged to follow with the primary care physician, and risk of fall explained to the, patient and the , if any side effects of the medication go to the ER her primary care physician's office, Medications Home Meds Active Scripts Topiramate* (Topamax*) 25 Mg Tablet, 25 MG PO QHS for 30 Days, TAB Prov:VENU MONTERROSO MD 10/13/17 Phenytoin* Sodium Extended (Dilantin*) 100 Mg Capsule, 200 MG PO BID for 30 Days , CAP Prov:VENU MONTERROSO MD 10/13/17 Levetiracetam* (Keppra*) 750 Mg Tablet, 1500 MG PO BID for 30 Days, TAB Prov:VENU MONTERROSO MD 10/13/17 Clonazepam* (Clonazepam*) 0.5 Mg Tablet, 0.25 MG PO BID for 30 Days, TAB Prov:VENU MONTERROSO MD 10/13/17 Losartan Potassium* (Cozaar*) 50 Mg Tablet, 50 MG PO DAILY for 30 Days, TAB Prov:VENU MONTERROSO MD 10/08/17 Reported Medications Levothyroxine Sodium* (Levothyroxine Sodium*) 50 Mcg Tablet, 50 MCG PO DAILY, TAB 06/22/15 ROSA SIMMS MD Oct 25, 2017 14:50
== END 2017-10-25 16:28 | disposition home or self-care (01) ==
LOC: DCC 14:22
PROVIDERS: ATTEND Internal Medicine
DX: G40.909 Epilepsy, unspecified, not intractable, without status epilepticus (principal); I10 Essential (primary) hypertension; E03.9 Hypothyroidism, unspecified; R42 Dizziness and giddiness
CPT/HCPCS: G0463

== ENCOUNTER 2017-12-14 13:15 | Emergency (ER) | END 2017-12-14 19:24 | disposition home or self-care (01) ==

== ENCOUNTER 2018-01-28 13:29 | Emergency (ER) | END 2018-01-28 17:03 | disposition home or self-care (01) ==

== ENCOUNTER 2018-02-13 17:12 | Emergency (ER) | END 2018-02-13 23:38 | disposition home or self-care (01) ==

== ENCOUNTER 2018-02-25 05:24 | Inpatient (IN) | END 2018-03-10 18:57 | disposition short-term general hospital (02) | DRG 101 ==